=== PATIENT | female | born 1995 | race Caucasian/White ===

== ENCOUNTER 2021-03-28 05:01 | Emergency (ER) | payer MEDICAID, SELFPAY ==
[2021-03-28] VITALS (7 sets, daily range): BP systolic 94–115; BP diastolic 64–89; PULSE 81–108; RESP 11–22; TEMP 37; O2SAT 100
--- NOTE | 2021-03-28 05:42 | ED.ABDPAIN ---
HPI - Abdominal Pain General Chief Complaint: Abdominal Pain Stated Complaint: abd pain Time Seen by Provider: 03/28/21 05:26 History of Present Illness HPI narrative: Cramping RLQ pain for several hours. Associated with nausea. She has had this pain multiple times in the past due to IBS. She is normally on dicyclomine, but she did not take it because she has not eaten and did not want to take it on an empty stomach. No vomiting, diarrhea, fever. Related Data Home Medications Medication Instructions Recorded Confirmed dicyclomine mg 03/28/21 norgestimate-ethinyl estradiol tablet 03/28/21 03/28/21 [Sprintec (28)] Allergies Allergy/AdvReac Type Severity Reaction Status Date / Time No Known Allergies Allergy Unverified 03/28/21 05:16 Review of Systems Review of Systems: All systems reviewed & are unremarkable except as noted in HPI and below Constitutional: Constitutional: Denies chills and Denies fever(s) Cardiovascular: Cardiovascular: Denies chest pain Respiratory: Respiratory: Denies dyspnea Gastrointestinal: Gastrointestinal: Reports abdominal pain, Denies diarrhea, Reports nausea and Denies vomiting Genitourinary: Genitourinary: Denies hematuria and Denies dysuria Neurologic: Reports system reviewed and no additional complaints, except as documented [facility] Past Medical History Medical History (Updated 03/28/21 @ 07:10 by Steven Clinton MD) IBS (irritable bowel syndrome) Social History Social History (Updated 03/28/21 @ 05:54 by Steven Clinton MD) Smoking status: Never smoker Exam Const: General: no acute distress Orientation/consciousness: patient oriented x3 HENMT: Head: normal to inspection Neck: Neck: normal visual inspection and no lymphadenopathy Chest: Chest palpation & inspection: no tenderness Resp: Effort & Inspection: normal respiratory effort Auscultation: clear to auscultation bilaterally, no rales, no rhonchi and no wheezes Cardio: Jugular venous distension: no JVD Rate: regular rate Rhythm: regular rhythm Heart sounds: no murmurs GI: Inspection: non-distended GI Palp: Yes Soft to palpation and No Tenderness to palpation present (GI) Skin: General skin exam: normal color Neuro: General: patient oriented x3 and moves all extremities Speech: normal speech Extrem: General: no edema Psych: Appearance: well kempt Affect: normal affect Course Vital Signs Vital signs: Vital Signs Temperature 37.0 C 03/28/21 05:07 Pulse Rate 84 03/28/21 05:07 Respiratory Rate 21 H 03/28/21 05:07 Blood Pressure 104/70 03/28/21 05:07 Pulse Oximetry 100 03/28/21 05:07 Temperature 37.0 C 03/28/21 05:07 Pulse Rate 90 03/28/21 08:03 Respiratory Rate 12 03/28/21 08:03 Blood Pressure 94/64 L 03/28/21 08:03 Pulse Oximetry 100 03/28/21 08:03 MDM - Abdominal Pain MDM Narrative Medical decision making narrative: Exam benign. Labs reassuring. She reports negative CT for the same symptoms in the past. Differential Diagnosis Differential diagnosis: Likely constipation and other (IBS) Medical Records Attestation: I reviewed the patient's medical records. Lab Data Attestation: I reviewed the patient's lab results. Result diagrams: 03/28/21 05:43 03/28/21 05:43 Labs: Lab Results 03/28/21 03/28/21 03/28/21 Range/Units 05:43 05:43 05:43 WBC 9.9 (4.5-10.0) K/mm3 RBC 4.14 L (4.2-5.4) M/mm3 Hgb 10.6 L (12.0-15.0) g/dL Hct 33.5 L (37.0-47.0) % MCV 80.9 (80-100) fl MCH 25.6 L (26-34) pg MCHC 31.6 L (32-36) g/dl RDW 16.7 H (11.5-14.5) % Plt Count 253 (150-375) k/mm3 MPV 11.6 H (7.4-10.4) fl Immature Gran % (Auto) 0.4 (0-0.5) % Neut % (Auto) 76.8 H (45.5-73.1) % Lymph % (Auto) 15.6 L (18.3-44.2) % [place] % (Auto) 7.0 (2.6-8.5) % Eos % (Auto) 0.1 (0-4.4) % Baso % (Auto) 0.1 L (0.2-1.2) % Lymph # (Auto) 1.55 (0.9-3.2) K/
[2021-03-28 05:50] LABS: Basophils Percent Auto 0.1 % (0.2-1.2); Eosinophils Percent Auto 0.1 % (0-4.4); Hematocrit 33.5 % (37.0-47.0); Hemoglobin 10.6 g/dL (12.0-15.0); Immature Granulocyte Absolute 0.04 K/mm3 (0.00-0.031); Immature Granulocyte Percent A 0.4 % (0-0.5); Lymphocytes Absolute Auto 1.55 K/mm3 (0.9-3.2); Lymphocytes Percent Auto 15.6 % (18.3-44.2); Mean Corpuscular HGB Conc 31.6 g/dl (32-36); Mean Corpuscular Hemoglobin 25.6 pg (26-34); Mean Corpuscular Volume 80.9 fl (80-100); Mean Platelet Volume 11.6 fl (7.4-10.4); Monocytes Absolute Auto 0.7 K/mm3 (0.1-0.6); Neutrophils Absolute Auto 7.6 K/mm3 (1.3-6.7); Neutrophils Percent Auto 76.8 % (45.5-73.1); Platelet Count Result 253 k/mm3 (150-375); Red Blood Count 4.14 M/mm3 (4.2-5.4); Red Cell Distribution Width 16.7 % (11.5-14.5); White Blood Count 9.9 K/mm3 (4.5-10.0)
[2021-03-28 06:00] LABS: Add Urine Microscopic? YES; Alanine Aminotransferase 9 U/L (4-35); Albumin Level 4.8 g/dL (3.5-5.1); Alkaline Phosphatase 42 U/L (38-126); Anion Gap 19 mmol/L (8-16); Appearance Urine Clear (Clear); Aspartate Amino Transferase 22 U/L (14-36); Bacteria Urine Trace /hpf; Bilirubin Urine Negative (Negative); Bilirubin,Total 0.9 mg/dL (0.2-1.3); Blood Urea Nitrogen 10 mg/dL (7-17); Blood Urine 1+ (Negative); Calcium 9.7 mg/dL (8.4-10.2); Carbon Dioxide 15 mmol/L (22-30); Chloride 105 mmol/L (98-107); Color Urine Yellow (Yellow); Estimated CRCL calculation 86 ml/min; Estimated Glomerular Filt Rate > 60; Glucose 84 mg/dL (65-105); Glucose Urine UA Negative (Negative); Ketones Urine 2+ mg/dL (Negative); Leukocyte Esterase Ur Negative LEU/UL (Negative); Lipase 47 U/L (23-300); Mucus Urine Rare /lpf; Nitrate Urine Negative (Negative); Potassium 3.8 mmol/L (3.4-5.0); Protein Urine 1+ mg/dL (Negative); Sodium 139 mmol/L (137-145); Specific Grav Ur 1.017 (1.001-1.035); Squamous Epithelial Cell Urine Occasional /hpf (Few); Urobilinogen Urine Negative mg/dL (<2.0); WBC Urine 0-3 /hpf
[2021-03-28] MEDS: SODIUM CHLORIDE 0.9% IV 1,000 ML 999 ML IV CONT (06:06)
[2021-03-28] MEDS: SIMETHICONE 80 MG TAB.CHEW PO (06:07)
[2021-03-28] MEDS: DICYCLOMINE HCL INJ 20 MG/2 ML VIAL IM (06:08)
[2021-03-28] MEDS: fentaNYL CITRATE INJ (*CRX) 100 MCG/2 ML VIAL 50 MCG IV PUSH (07:16)
== END 2021-03-28 08:07 | disposition home or self-care (01) ==
PROVIDERS: Emergency Provider Emergency Medicine
DX: K58.9 Irritable bowel syndrome, unspecified (principal)
CPT/HCPCS: 36415; 80053; 81001; 81025; 83690; 85025; 96361; 96372; 96374; 99284; A9270; J0500; J3010; J7030

== ENCOUNTER 2022-10-29 12:31 | Emergency (ER) | payer OTHER, MEDICAID, SELFPAY ==
--- NOTE | 2022-10-29 12:33 | ED.DENTAL ---
HPI - Dental/Oral General Chief complaint: Skin/Abscess/Foreign Body Stated complaint: Rt Mouth Pain and Swelling Time Seen by Provider: 10/29/22 12:33 Source: patient Mode of arrival: ambulatory Limitations: no limitations History of Present Illness HPI Narrative: Merlyn is a 27-year-old female patient presenting to the clinic today with complaints of right-sided facial pain and swelling x 2 weeks. She reports that she initially thought this was Gregg that so she popped it on Monday and it has gradually gotten worse. She denies any fever or chills Related Data Home Medications Medication Instructions Recorded Confirmed norgestimate 0.25 mg-ethinyl 1 tablet PO DAILY 03/28/21 10/29/22 estradiol 35 mcg tablet (Sprintec (28)) pantoprazole 40 mg tablet,delayed 40 mg PO DAILY 10/29/22 10/29/22 release Allergies Allergy/AdvReac Type Severity Reaction Status Date / Time No Known Allergies Allergy Verified 10/29/22 12:36 Review of Systems Review of Systems: Pertinent positives per HPI. Patient denies any fever, chills, rash, headache, visual changes, dizziness, cough, runny nose, sore throat, shortness of breath, chest pain, palpitations, nausea, vomiting, diarrhea, constipation, abdominal pain, or any urinary issues. [facility] Past Medical History Medical History IBS (irritable bowel syndrome) Social History Social History Smoking status: Never smoker Comments At the time of my signature, I reviewed and agree with the nursing past medical, surgical, social, and family history. There is no relevant family history pertinent to the patient complaint. Exam Narrative: General: Well-developed, well nourished, in no apparent distress Head: Normocephalic, atraumatic. Cardio: Regular rate and rhythm, s1 and s2 normal, no murmur appreciated. Resp: Clear to auscultation bilaterally, no rhonchi, rales, wheezing or rubs. Integumentary: [place], warm, and dry, intact without lesion, non-fluctuant indurated mildly erythematous and tender area measuring 1.5 x 2 cm to the right cheek. No drainage Course Course Emergency Course: Portions of this record may have been created with voice recognition software. Level of Care: Express Care Visit Vital Signs Vital signs: Vital Signs Temperature 36.3 C L 10/29/22 12:42 Pulse Rate 86 10/29/22 12:42 Respiratory Rate 18 10/29/22 12:42 Blood Pressure 117/79 10/29/22 12:42 Pulse Oximetry 100 10/29/22 12:42 Oxygen Delivery Room Air 10/29/22 12:42 Temperature 36.3 C L 10/29/22 12:42 Pulse Rate 86 10/29/22 12:42 Respiratory Rate 18 10/29/22 12:42 Blood Pressure 117/79 10/29/22 12:42 Pulse Oximetry 100 10/29/22 12:42 Oxygen Delivery Room Air 10/29/22 12:42 Vital signs reviewed MDM - Dental/Oral MDM Narrative Medical decision making narrative: At the time of visit patient is resting comfortably in the exam table. I suspect patient has a developing abscess. I will send in prescription for doxycycline to take twice daily times 10 days. Area is nonfluctuant, induratied, warm,and very tender to palpation today. No drainage seen. Supportive measures were discussed with the patient she voiced understanding discharge instructions agrees to treatment plan. Differential Diagnosis Differential diagnosis: Likely other (Skin/facial abscess, insect bite, cellulitis) Discharge Plan Discharge Clinical Impression: Abscess of face Patient Disposition: Home, Self-Care Condition: Stable Instructions: Antibiotic Form, Abscess (ED) Additional Instructions: Take doxycycline as prescribed Wash area daily with soap and water May apply warm moist heat to the affected area to see if this will come to a head-if this becomes more fluctuant you may come back in and have it drained if needed Increase fluids and stay well
[2022-10-29 12:42] VITALS: BP 117/79; PULSE 86; RESP 18; TEMP 36.3; O2SAT 100
== END 2022-10-29 12:53 | disposition home or self-care (01) ==
LOC: EXPTROY 12:37
PROVIDERS: Emergency Provider Nurse Practitioner Family; PCP Family Medicine
DX: L02.01 Cutaneous abscess of face (principal); K21.9 Gastro-esophageal reflux disease without esophagitis
CPT/HCPCS: 99213; G0463

== ENCOUNTER → 2023-03-31 16:23 | Outpatient (CLI) | payer OTHER, MEDICAID, SELFPAY ==
--- NOTE | ~2023-03-31 | XR_ITS ---
EXAM: XR hip LT min 2V DATE: 03/31/2023 16:38 HISTORY: M25.552Pain in left hip X's 1 month/no trauma . COMPARISON: None available. FINDINGS: Normal mineralization. No fracture or dislocation. No lytic or blastic lesion. Joint space s are maintained. No erosion or periosteal change. Soft tissues within normal limits. Unfused posteri or S1 arch. IMPRESSION: Unremarkable left hip radiograph findings. Reviewed, dictated and finalized at location K.
== END ==
PROVIDERS: PCP Nurse Practitioner Family; Visit Provider Nurse Practitioner Family
DX: M25.552 Pain in left hip (principal)
CPT/HCPCS: 73502

== ENCOUNTER 2024-08-02 09:43 | Emergency (ER) | payer BC, SELFPAY ==
--- NOTE | 2024-08-02 09:47 | ED.URI ---
HPI - URI/Sore Throat General Chief Complaint: Upper Respiratory Infection Stated Complaint: sore throat , runny nose , cough Time Seen by Provider: 08/02/24 09:53 Source: patient, RN notes reviewed and old records reviewed Mode of arrival: ambulatory Limitations: no limitations History of Present Illness HPI Narrative: 28-year-old female presents to the [facility] with complaints of sore throat nose and a cough that started 3 weeks ago. Patient also reports sinus congestion, pressure. Reports intermittent cough. Has taken ibuprofen. Took 2 doses of Sudafed last week. No other treatment prior to arrival. Denies fevers. Onset (ago): week(s) (3) Related Data Home Medications Medication Instructions Recorded Confirmed ferrous fumarate 63 mg (20 mg 63 mg PO PRN PRN anemia 08/02/24 08/02/24 iron) tablet pantoprazole 40 mg tablet,delayed 40 mg PO QAM 08/02/24 08/02/24 release Allergies Allergy/AdvReac Type Severity Reaction Status Date / Time No Known Allergies Allergy Verified 08/02/24 09:47 Review of Systems Review of Systems: All systems reviewed & are unremarkable except as noted in HPI and below Constitutional: Constitutional: Reports no additional constitutional complaints ENT: Reports as per HPI, Reports nasal congestion, Reports nasal discharge and Reports sore throat Cardiovascular: Cardiovascular: Reports no additional cardiovascular complaints, Denies chest pain and Denies dyspnea Respiratory: Respiratory: Reports as per HPI, Denies chest congestion, Reports cough and Denies dyspnea Gastrointestinal: Gastrointestinal: Reports no additional gastrointestinal complaints, Denies abdominal pain, Denies nausea and Denies vomiting Musculoskeletal: Musculoskeletal: Reports no additional musculoskeletal complaints Integumentary/Breasts: Skin/Breast: Reports system reviewed and no additional complaints, except as docu PMFSH Past Medical History Medical History Anemia Encounter to establish care Gastritis GERD (gastroesophageal reflux disease) IBS (irritable bowel syndrome) Iron deficiency anemia Left hip pain Family History Family History Other Alcohol abuse Mother Cancer Grandparent Depression Social History Social History Smoking status: Never smoker Alcohol intake: current Alcohol use details: Rarely maybe one time a year Substance use: never Substance use type: does not use Do You Feel Safe in your Home?: Yes Lack of Transportation: No Lack of Food: Never True Current Housing: I Have Housing Concerned About Future Housing: No Difficulty Paying Gas/Electric Bills: No Difficulty Paying for Meds: No Currently Unemployed: No Education: Master's Degree or Higher Difficulty w/ Childcare or Family Care: No Living arrangements: with family Occupation/Education: occupation Gender identity (if verbalized by the patient): Female Sexual Orientation (if Verbalized by the Patient): Straight or Heterosexual Spiritual care concerns: No Agree to blood products: Yes Comments At the time of my signature, I reviewed and agree with the nursing past medical, surgical, social, and family history. There is no relevant family history pertinent to the patient complaint. Exam Const: General: cooperative, healthy appearing, comfortable, no acute distress, well developed, alert and well nourished Nutritional Appearance: well nourished Orientation/consciousness: patient oriented x3 Limitations: no limitations HENMT: Head: normal to inspection Ears: hearing grossly normal bilaterally, external ears normal, EAC's normal, mastoids normal and no periauricular adenopathy Face/Nose/Sinus: Normal external nose present, No nasal discharge present, normal facial exam and face symmetric Face and sinus: normal facial exam, sinuses nontender and face symmetric Mouth: Yes Normal oral and palatal mucosa present, Yes lip normal and Yes tongue normal Throat: posterior oropharynx normal, tonsils normal, uvula midline, postnasal drainage and no uvular edema Eyes: General: appearance normal, both eyes and all related structures Alignment and Position: alignment normal Periorbital: periorbital findings normal Neck: Neck: normal visual inspection, full ROM, no lymphadenopathy and no meningeal signs Chest: Chest palpation & inspection: normal inspection of the chest Resp: Effort & Inspection: normal respiratory effort and able to speak in complete sentences Auscultation: clear to auscultation bilaterally, no crackles, no rales, no rhonchi and no wheezes Cardio: Rate: regular rate Skin: General skin exam: normal color and no rashes or lesions noted Lesions: no lesions Rashes: no rashes Wounds: no wounds Neuro: General: patient oriented x3, gait normal, tone normal, moves all extremities and no meningeal signs Cognition (Neuro): normal cognition Speech: normal speech Gait exam (Neuro): Normal gait present Extrem: General: normal to inspection, full ROM, capillary refill normal and normal gait Psych: Appearance: grossly normal and well kempt Mental Status: mental status grossly normal Speech and movement: Normal speech and movement present and Clear speech present Affect: normal affect Attitude: cooperative Course Course Level of Care: Express Care Visit Vital Signs Vital signs: Vital Signs Temperature 97.4 F L 08/02/24 09:53 Pulse Rate 80 08/02/24 09:53 Respiratory Rate 16 08/02/24 09:53 Blood Pressure 104/66 08/02/24 09:53 Pulse Oximetry 99 08/02/24 09:53 Oxygen Delivery Room Air 08/02/24 09:53 Temperature 97.4 F L 08/02/24 09:53 Pulse Rate 80 08/02/24 09:53 Respiratory Rate 16 08/02/24 09:53 Blood Pressure 104/66 08/02/24 09:53 Pulse Oximetry 99 08/02/24 09:53 Oxygen Delivery Room Air 08/02/24 09:53 Reviewed MDM - URI/Sore Throat MDM Narrative Medical decision making narrative: Patient sitting comfortably in exam room. Nontoxic, vitals stable. Patient in no acute distress Patient presents with 3 week history of URI, sinus symptoms. Minimal treatment No acute findings other than postnasal drainage noted on exam Due to 3 week history will attempt antibiotic and encourage patient to use [id number] products Patient appropriate for outpatient treatment and follow-up Discharge instructions reviewed with patient, as well as provided in writing per nursing staff. The instructions also include specific and strict return/GO TO THE ER as well as f/u information. All questions have been answered, and the patient deny any further questions with discharge and discharge plan. Some parts of this dictation were generated by voice recognition software and may contain typographical and/or grammatical inaccuracies. Differential Diagnosis Differential diagnosis: Likely upper respiratory infection, otitis media, sinusitis, viral infection, bronchitis and pharyngitis Critical Care Time Critical Care Time Critical Care Time: No Discharge Plan Discharge Clinical Impression: Sinusitis, PND (post-nasal drip) Patient Disposition: Home, Self-Care Condition: Stable Instructions: Antibiotic Form, Rhinosinusitis (ED) Additional Instructions: -Alternate Tylenol and Motrin per package directions for fever or pain. -Antihistamine medication such as Benadryl at night and Zyrtec/Claritin/Tammi during the day can help improve symptoms. -doing daily nasal irrigations can help relieve pressure your sinuses. Things like a Neti pot -Use Flonase twice a day for 5 days then daily to help reduce the inflammation and dry up your sinuses. -You can also use Sudafed or Mucinex. Be sure to drink plenty of water with these medications at least 8 ounces with every dose and it is important to drink 8 to 10 glasses of water per day. Water is a natural decongestant -Eat and drink things that are easy to swallow, like tea or soup, or popsicles. -Oral rinses such as: Salt water gargles and/or may use topical anesthetic (eg. Chloraseptic spray) or lozenges to relieve dryness or throat pain). -Frequent hand washing or hand brand engineer is one of the best ways to prevent spread of infection. -Using a vaporizer or humidifier at night will also help thin secretions and help with coughing up phlegm. -Follow up with primary care provider in 7-10 days if condition is not improving - For new or worsening symptoms go directly to the nearest ER Patient Language: Bengali Prescriptions: New amoxicillin-pot clavulanate 875-125 mg tablet 1 tablet PO Q12H Qty: 14 0RF No Action ferrous fumarate 63 mg (20 mg iron) Tablet 63 mg PO PRN PRN (Reason: anemia) pantoprazole 40 mg Tablet,Delayed Release (Dr/Ec) 40 mg PO QAM Follow-up/Referrals: Cristina Mcneil NP [Primary Care Provider] - Stand Alone Forms: Work/School Release IP Time of Disposition: 10:02
[2024-08-02 09:53] VITALS: BP 104/66; PULSE 80; RESP 16; TEMP 36.3; O2SAT 99
== END 2024-08-02 10:03 | disposition home or self-care (01) ==
PROVIDERS: Emergency Provider Nurse Practitioner; PCP Nurse Practitioner Family
DX: J32.9 Chronic sinusitis, unspecified (principal); R09.82 Postnasal drip; K21.9 Gastro-esophageal reflux disease without esophagitis; D50.9 Iron deficiency anemia, unspecified
CPT/HCPCS: 99213; G0463

== ENCOUNTER 2025-01-22 08:03 | Emergency (ER) | payer BC, SELFPAY ==
[2025-01-22 08:12] VITALS: BP 96/65; PULSE 91; RESP 18; TEMP 36.3; O2SAT 100
--- NOTE | 2025-01-22 08:12 | ED_ITS ---
HPI - General Adult General Chief complaint: Skin/Abscess/Foreign Body Stated complaint: hemmorhoids Time Seen by Provider: 01/22/25 08:21 Source: patient Mode of arrival: ambulatory Limitations: no limitations History of Present Illness HPI narrative: Here With concern for anal itching. She reports a 4 day history of anal itching. she denies constipation, reports last BM was 2 days ago. She reports a history of IBS mixed type with constipation and diarrhea. she reports using MiraLax at times for constipation. She reports history of anemia and being on iron, and is familiar with taking medications for constipation. She denies any blood in stool or bleeding from the rectum. Denies any nausea or vomiting. She reports googling her symptoms online and being concerned for pinworms. She reports drinking clean water. She denies any recent travel, and denies any recent international travel. She reports no restrictions on her diet. She reports eating plenty of fresh fruits, vegetables, and fiber. She reports being 19 and half weeks . Her last menstrual was 09/12/2024. Due date 06/14. She is with her first child, a boy. She reports she is otherwise in her usual state of health. She reports having an OBGYN appointment scheduled for Monday. Related Data Home Medications ?Medication ?Instructions ?Recorded ?Confirmed ?Last Taken ?Type pantoprazole 40 mg tablet,delayed 40 mg PO QAM 08/02/24 01/22/25 Unknown History release docosahexaenoic acid 200 mg mg PO 10/11/24 10/11/24 Unknown History capsule ( DHA) ferrous sulfate 325 mg (65 mg 325 mg PO DAILY 10/11/24 01/22/25 Unknown History iron) tablet Allergies Allergy/AdvReac Type Severity Reaction Status Date / Time No Known Allergies Allergy Verified 01/22/25 08:05 Review of Systems Review of Systems: CONSTITUTIONAL: Denies fever, chills, or sweats. EYES: Denies visual changes, redness, or discharge. ENT: Denies rhinorrhea, congestion, sore throat, or otalgia. CARDIOVASCULAR: Denies chest pain, palpitations, or edema. RESPIRATORY: Denies cough or dyspnea. GASTROINTESTINAL: Denies abdominal pain, nausea, vomiting, or diarrhea. GENITOURINARY: Denies dysuria or hematuria. : . SKIN: Denies rash. +anal itching MUSCULOSKELETAL: Denies back pain, joint pain, or myalgia. NEUROLOGIC: Denies headache, numbness, or weakness. PSYCHIATRIC: Denies anxiety or depression. All other systems reviewed are negative, except as documented in HPI. [facility] Past Medical History Medical History (Updated 01/22/25 @ 08:35 by Faith Mata APRN) Insomnia Positive home test BMI < 18.5 Iron deficiency anemia Gastritis Encounter to establish care Left hip pain Anemia GERD (gastroesophageal reflux disease) IBS (irritable bowel syndrome) Family History Family History Other Alcohol abuse Mother Cancer Grandparent Depression Social History Social History Smoking status: Never smoker Alcohol intake: current Alcohol use details: Rarely maybe one time a year Substance use: never Substance use type: does not use Do You Feel Safe in your Home?: Yes Lack of Transportation: No Lack of Food: Never True Current Housing: I Have Housing Concerned About Future Housing: No Difficulty Paying Gas/Electric Bills: No Difficulty Paying for Meds: No Currently Unemployed: No Education: Master's Degree or Higher Difficulty w/ Childcare or Family Care: No Living arrangements: with family Occupation/Education: occupation Gender identity (if verbalized by the patient): Female Sexual Orientation (if Verbalized by the Patient): Straight or Heterosexual Spiritual care concerns: No Agree to blood products: Yes Comments At time of signature, I have reviewed and agree with nursing past medical, surgical, social and family history unless otherwise noted. Please see nursing chart for further information. There is no relevant family history pertinent to the presenting complaint. Exam Narrative: GENERAL: This is a well-nourished, well-developed patient, in no apparent distress. HEAD: normocephalic, atraumatic. EYES: Sclera clear/white. EARS: External ears normal. Hearing grossly intact. NOSE: External nose normal with no obvious nasal discharge. THROAT: Trachea midline. CARDIOVASCULAR: Regular rate and rhythm without murmurs, gallops, or rubs. RESPIRATORY: Clear to auscultation. Breath sounds equal bilaterally. No wheezes, rales, or rhonchi. SKIN: warm, Dry, intact with no suspicious lesions or rash, good texture and turgor. Anus inspected with RN at bedside. No hemorrhoids. No redness. NEURO: awake, alert, and oriented to person, place and time. There were no obvious focal neurologic abnormalities. EXTREMITIES: No joint tenderness, effusion, or edema noted. Course Course Level of Care: Express Care Visit Vital Signs Vital signs: reviewed Medical Decision Making MDM Narrative Medical decision making narrative: Patient is aware of diagnosis, understands and agrees to treatment plan. Anticipatory guidance was given. We reviewed ensuring patient diet consists of plenty of fiber. We reviewed to avoid topical creams applied to anus unless they are approved by substitute bus driver. There are many [id number] medications available for anal itching, however the evidence conflicts on the efficacy, and Benefit versus risk in . She will contact Ob/ fermenter champagne office for approved medications or topical creams she can use on the anus. We also discussed testing options if she continues to be concerned for possible worms, Such as a stool O& with PCP. She will discuss this further at her substitute bus driver appointment on Monday. Discussed physical exam findings with patient and reviewed prescriptions. Patient agrees to follow-up as directed and is aware of reasons to seek care at the emergency department. Discharge instructions were reviewed with the patient, as well as provided in writing per nursing staff. All questions have been answered, and the patient denies any further questions related to discharge or discharge plan. Discharge Plan Discharge Clinical Impression: Anal pruritus Patient Disposition: Home Condition: Stable Instructions: Constipation (ED), Anal Itching (ED), High Fiber Diet (ED) Additional Instructions: Continue medications as prescribed and follow printed instructions. Increase fiber intake. Drink plenty of water. Nutrition is important - eat small frequent meals. Talk to CERTIFIED MASTER SAFE TECHNICIAN at your appointment on Monday about possible topical treatment options such as creams. Keep CERTIFIED MASTER SAFE TECHNICIAN appointment as scheduled on Monday. Patient Language: Irish Prescriptions: No Action pantoprazole 40 mg Tablet,Delayed Release (Dr/Ec) 40 mg PO QAM ferrous sulfate 325 mg (65 mg iron) tablet 325 mg PO DAILY DHA 200 mg capsule PO Follow-up/Referrals: Cristina Mcneil NP [Primary Care Provider] - Time of Disposition: 08:35
--- OUTSIDE RECORDS SUMMARY | 2025-01-22 08:14 | XMS_ITS | Clinical Summary ---
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 0 9 Active ondansetron (ZOFRAN-ODT) 4 MG disintegrating tablet Take 1 tablet (4 mg total) by mouth every 8 (eight) hours as needed for Nausea. 10 tablet 2 Active Active Problems Problem Noted Date Diagnosed Date Abdominal pain 05/07/2022 IBS (irritable bowel syndrome) Overview (05/07/2022): possible Hypokalemia Microcytic anemia Acute cystitis Social History Tobacco Use Types Packs/Day Years Used Date Smoking Tobacco: Never Smokeless Tobacco: Never Alcohol Use Standard Drinks/Week Comments Never 0 (1 standard drink = 0.6 oz pur e alcohol) AUDIT-C Answer Date Recorded Frequency of Alcohol Consumption Never 11/18/2019 Average Number of Drinks Not on file 020 Frequency of Binge Drinking Not on file 11/02 Comments Unknown Sex and Gender Information Value Date Recorded Sex Assigned at Female 11/18/2019 5:41 AM VOICE STUDIES DIRECTOR Legal Sex Female 10:23 AM CDT Gender Identity Female 11/18/2019 5:41 AM VOICE STUDIES DIRECTOR Sexual Orientation Straight 11/18/2019 5: 41 AM VOICE STUDIES DIRECTOR Last Filed Vital Signs Vital Sign Reading Time Taken Comments Blood Pressure 96/57 08/12/2022 8:43 AM VOICE STUDIES DIRECTOR Pulse 85 08/12/2022 8:43 AM VOICE STUDIES DIRECTOR Temperature 36 C (96.8 F) 08/12/2022 8:43 AM VOICE STUDIES DIRECTOR Respiratory Rate 18 08/12/2022 8:43 AM VOICE STUDIES DIRECTOR Oxygen Saturation 100% 08/12/2022 8:43 AM VOICE STUDIES DIRECTOR Inhaled Oxygen Concentration - - Weight 54.4 kg (120 lb) 08/04/2022 3:00 PM CDT Height 170.2 cm (5' 7 ) 08/04/2022 3:00 PM CDT Body Mass Index 18.79 08/04/2022 3:00 PM CDT Plan of Treatment Health Maintenance Due Date Last Done Comments Annual Physical 1996 Hepatitis C 2011 DTaP, Tdap and Td Vaccines ( 1 - Tdap) 2012 Hepatitis B Vaccines (1 of 3 - 19+ 3-dose series) 2012 Cervical Cancer Screening Pa p with HPV Testing (Age 30 to 64) Every 5 Years 2023 COVID-19 Vaccine ( - 2023-2 5 season) 2024 01/08/2021, 12/09/2020 Cervical Cancer Screening Pa p Smear (Age 30 to 64) Every 3 Years 04/27/2025 04/27/2022 Cervical Cancer Screening wi HPV 04/27/2025 HPV Vaccines Aged Out No longer eligi ble based on patient's age to complete this topic Meningococcal B Vaccine Aged Out No l onger eligible based on patient's age to complete this topic Meningococcal Vaccine Aged Out No radha clem eligible based on patient's age to complete this topic Pneumococcal Vaccine: Pediatrics (0 to 5 Years) and At-Risk Patients (6 to 49 Years) Aged Out No longer eligible b ased on patient's age to complete this topic RSV Immunizations Under 20 Months Aged Out No longer eligible b ased on patient's age to complete this topic Insurance [employer] Advance Directives * Full Code (Latest Code Status on File) Date Activated Date Inactivated Comments 05/07/2022 2:37 AM 05/07/2022 8:40 PM Care Teams Tannery Worker Relationship Specialty Start Date End Date Petrona Wets FNP [address] [place] [id number] PCP - General NURSE PRACTITIONER 05/15/19
--- OUTSIDE RECORDS SUMMARY | 2025-01-22 08:16 | XMS_ITS | Data Portability ---
Author Organization [facility] [place] Address [address] [place] [address] [address] Care Team Providers Care Furnace Combustion Analyst Name Role Phone JYOTI MCKINNON Primary Care Provider Assessment Encounter Date Assessment Date Assessment LastModified by Organization Details LastModified Time 12/24/2024 12/24/2024 Patient is ___weeks . Discussed plan. [email or web address] Not available 12/24/2024 10:08:02 Plan of Treatment Reminders Order Date Submit Date Provider Last Modified By Organization Details Last Modified Time Details Appointments U/S OB BASELIN E 2024 09:00A M ULTRASOUND Not available Not available Not available OB ROUTINE 2024 10:00A M Kalia PICHARDO MD Not available Not available Not available Lab drug screen, urine 2024 025 [email or web address] [address], [address], [place], [address], 12/13/2024 11:01:17 Referral None recorde d. Procedures None recorde d. Surgeries None recorde d. Imaging US, obstetr ic, limited 2024 025 [email or web address] [place], [address], [place], [address], 12/25/2024 19:02:19 US, obstetr ic, nuchal translu cency 2024 025 [email or web address] [place], [address], [place], [address], 12/06/2024 16:12:42 Medication Orders None recorde d. Patient TargetsNo targets recorded. Patient InstructionsNo instructions recorded. Reason for Referral None Reported. Results Created Date Observation Date Name Description Value Unit Range Abnormal Flag Note LastModifiedBy Organization Detail LastModifiedTime 12/03/19 25 12/02/2024 [UNIT Y] ANEUP LOIDY NIPT fraction 9.3% normal Not Available [facility] [address] [facility], [place], [address], 12/02/2024 18:12:34 12/03/19 25 12/02/2024 [UNIT Y] ANEUP LOIDY NIPT 22Q11.2 microdeletio n LOW RISK <1 in 10,000 normal Not Available [facility] [address] [place], [address], 12/02/2024 18:12:34 12/03/19 25 12/02/2024 [UNIT Y] ANEUP LOIDY NIPT sex chromosome aneuploidy NOT DETECT ED normal Not Available [facility] [address] [place], [address], 12/02/2024 18:12:34 12/03/19 25 12/02/2024 [UNIT Y] ANEUP LOIDY NIPT monosomy X LOW RISK <1 in 10,000 normal Not Available [facility] [address] [place], [address], 12/02/2024 18:12:34 12/03/19 25 12/02/2024 [UNIT Y] ANEUP LOIDY NIPT trisomy 13 LOW RISK <1 in 10,000 normal Not Available [facility] [address] [place], [address], 12/02/2024 18:12:34 12/03/19 25 12/02/2024 [UNIT Y] ANEUP LOIDY NIPT trisomy 18 LOW RISK <1 in 10,000 normal Not Available [facility] [address] [place], [address], 12/02/2024 18:12:34 12/03/19 25 12/02/2024 [UNIT Y] ANEUP LOIDY NIPT trisomy 21 LOW RISK <1 in 10,000 normal Not Available [facility] [address] [facility], [place], [address], 12/02/2024 18:12:34 12/03/19 25 12/02/2024 [UNIT Y] ANEUP LOIDY NIPT sex MALE normal Not Available [facility] [address] [facility], [place], [address], 12/02/2024 18:12:34 12/03/19 25 12/02/2024 [UNIT Y] ANEUP LOIDY NIPT gestation SINGLE TON normal Not Available [facility] [address] [facility], [place], [address], 12/02/2024 18:12:34 12/03/19 25 12/02/2024 [UNIT Y] ANEUP LOIDY NIPT for detailed report, see pdf See PDF normal Not Available [facility] [address] [facility], [place], [address], 12/02/2024 18:12:34 12/05/19 25 12/04/2024 [UNIT Y] MICHELLE GEETA DE LA TORRE N sickle cell disease/beta -thalassemia /hemoglobino pathies carrier screen NEGATI VE normal Not Available [facility] [address] [facility], [place], [address], 12/04/2024 20:55:56 12/05/19 25 12/04/2024 [UNIT Y] MICHELLE ER SCREE N alpha-thalas semia carrier screen NEGATI VE normal Not Available [facility] [address] [facility], [place], [address], 12/04/2024 20:55:56 12/05/19 25 12/04/2024 [UNIT Y] MICHELLE GEETA SCREE N cystic fibrosis carrier screen NEGATI VE normal Not Available [facility] [address] [facility], [place], [address], 12/04/2024 20:55:56 12/05/19 25 12/04/2024 [UNIT Y] MICHELLE DE LA TORRE Orlin spinal muscular atrophy carrier screen NEGATI VE 2 SMN1 copies , SNP not presen t normal Not Available [facility] [address], [place], [address], 12/04/2024 20:55:56 12/05/19 25 12/04/2024 [UNIT Y] MICHELLE DE LA TORRE Orlin for detailed report, see pdf See PDF normal Not Available [facility] [address], [place], [address], 12/04/2024 20:55:56 10/09/19 25 10/09/2024 BHCG, QUANT ITATI VE B-HCG 425.0 mIU/m L This assay was perfo rmed using [employer] ratio n reage nts and test kits. Value s obtai costa with other assay metho ds or kits canno t be used inter puga eably . Refer ence Range s: Non-p regna nt, preme nopau elfego women : 0.0-5 .3 mIU/m L Postm enopa usal women : 0.0-7 .0 mIU/m L Delisa l Pregn ugo: Gesta pollo l Age bHCG Conc. - mIU/m L 3 Weeks 5.8 - 71.7 4 Weeks 9.5 - 750 5 Weeks 217-7 138 6 Weeks 158 - 31,79 5 7 Weeks 3,697 - 162,5 63 8 Weeks 32,06 5 - 149,5 71 9 Weeks 63,80 3 - 151,4 10 10 Weeks 46,50 9 - 186,9 77 12 Weeks 27,83 2 - 210,6 12 14 Weeks 13,95 0 - 62,53 0 15 Weeks 12,03 9 - 70,97 1 16 Weeks 9,040 - 56,45 1 17 Weeks 8,175 - 55,86 8 18 Weeks 8,099 - 58,17 6 Not Available [facility] (Lab) [address], [place], [address], 10/10/2024 09:24:10 10/14/19 25 10/14/2024 BHCG, QUANT ITATI VE B-HCG 3477.0 mIU/m L This assay was perfo rmed using [employer] ratio n reage nts and test kits. Value s obtai costa with other assay metho ds or kits canno t be used inter puga eably . Refer ence Range s: Non-p regna nt, preme nopau elfego women : 0.0-5 .3 mIU/m L Postm enopa usal women : 0.0-7 .0 mIU/m L Delisa l Pregn ugo: Gesta pollo l Age bHCG Conc. - mIU/m L 3 Weeks 5.8 - 71.7 4 Weeks 9.5 - 750 5 Weeks 217-7 138 6 Weeks 158 - 31,79 5 7 Weeks 3,697 - 162,5 63 8 Weeks 32,06 5 - 149,5 71 9 Weeks 63,80 3 - 151,4 10 10 Weeks 46,50 9 - 186,9 77 12 Weeks 27,83 2 - 210,6 12 14 Weeks 13,95 0 - 62,53 0 15 Weeks 12,03 9 - 70,97 1 16 Weeks 9,040 - 56,45 1 17 Weeks 8,175 - 55,86 8 18 Weeks 8,099 - 58,17 6 Not Available [facility] (Lab) [address], [place], [address], 10/15/2024 05:05:54 11/08/19 25 11/08/2024 IMAGE GUIDE D PAP AND HPV REGAR DLESS image guided Pap, HPV regardless of Pap result SEE RESULT S BELOW CASE REPOR T: Cytol ogy Gynec ologi matt Repor t Case: [id number] Autho ericka g Provi bala: Jerry Pichardo MD Colle cted: 11/08 1539 Order ing Locat ion: [place] Patho logy Recei lorenzo: 11/11 1141 First Scree n: Carmelina r, [place] , [place] Rescr een: Federico en, Carolina ndra Speci men: Scree sadaf Pap - Image d, Cervi x STATE MENT OF ADEQU ACY: Satis facto ry for evalu ation Trans forma tion zone compo nent absen t. The absen ce of an endoc ervic al compo nent was confi rmed by an addit ional christofer brooks. ----- ----- ----- ----- ----- ----- ----- ----- ----- ----- ----- ----- ----- ----- ----- ----- ----- ---- FINAL DIAGN OSIS: Negat jose for Intra epith glenn pan or Ivelisse durham ([facility]) . Elect cesar abarca by Carolina Caballero en on 2024 at 1549 DYNAMITER ----- ----- ----- ----- ----- ----- ----- ----- ----- ----- ----- ----- ----- ----- ----- ----- ----- ---- HPV RESUL TS: HPV mRNA E6/E7 : No HPV mRNA Detec vlad NOTE: This high risk HPV mRNA assay detec ts fourt een high- risk HPV types (16, 18, 31, 33, 35, 39, 45, 51, 52, 56, 58, 59, 66, 68) witho ut diffe renti ation . COMME NT: This speci men was revie wed by a Cytot echno logis t and/o r Patho logis t (as indic ated in this repor t) after evalu ation using the Thinp rep Imagi ng Syste m. CLINI MATT INFOR MATIO N: Menst rual Statu s: LMP (if appli cable ): Clini matt Histo ry/Pr eviou s Pap: Type of Neopl darryl (if appli cable ): Signi nayeli t Clini matt Findi ngs: Other Histo ry: Hormo frank (if appli cable ): PAP EDUCA POLLO L NOTE: The Pap Test is a scree sadaf test with an inher ent false negat jose rate. Liqui d-bas ed sampl ing may decre ase, but will not elimi radha, false negat jose resul ts. A negat jose resul t does not precl ude the prese nce and/o r devel opmen t of disea se, since the prese nce of abnor mal cells in the sampl e depen ds on the locat ion of the lesio n and sampl ing techn ique. Stephanie nued regul ar scree sadaf is the best metho d of cance r preve ntion . If repor vlad cytol ogic findi ng do not corre late with physi matt and/o r histo rical findi ngs, furth er inves tigat ion is recom mariano d, as clini sydea duran nted. Not Available [facility] (Lab) [address], [place], [address], 11/13/2024 16:54:42 11/08/19 25 11/08/2024 TRICH OMONA S VAGIN TEETEE (RRNA ) trichomonas vaginalis ribosomal RNA (rrna) Negati ve negati ve Not Available [facility] (Lab) [address] [place], [address], 11/13/2024 16:54:43 11/08/19 25 11/08/2024 CT/GC (SANAM) , THINP REP VIAL chlamydia trachomatis, PCR Negati ve negati ve Not Available [facility] (Lab) [address] [place], [address], 11/13/2024 16:54:44 11/08/19 25 11/08/2024 CT/GC (SANAM) , THINP REP VIAL neisseria gonorrhoeae, PCR Negati ve negati ve Not Available [facility] (Lab) [address] [place], [address], 11/13/2024 16:54:44 11/18/19 25 11/18/2024 CBC W/DIF F WBC 6.4 10'3/ uL 3.5-10 .5 Not Available [facility] (Lab) [address], [place], [address], 11/19/2024 14:13:24 11/18/19 25 11/18/2024 CBC W/DIF F RBC 3.95 10'6/ uL (based on docume nted legal sex) 3.80-5 .20 Not Available [facility] (Lab) [address], [place], [address], 11/19/2024 14:13:24 11/18/19 25 11/18/2024 CBC W/DIF F HGB 11.5 g/dL (based on docume nted legal sex) 11.6-1 5.4 low Not Available [facility] (Lab) [address], [place], [address], 11/19/2024 14:13:24 11/18/19 25 11/18/2024 CBC W/DIF F HCT 35.0 % (based on docume nted legal sex) 34.0-4 5.0 Not Available [facility] (Lab) [address], [place], [address], 11/19/2024 14:13:24 11/18/19 25 11/18/2024 CBC W/DIF F MCV 88.6 fL 80.0-9 9.0 Not Available [facility] (Lab) [address], [place], [address], 11/19/2024 14:13:24 11/18/19 25 11/18/2024 CBC W/DIF F MCH 29.1 pg 27.0-3 4.0 Not Available [facility] (Lab) [address], [place], [address], 11/19/2024 14:13:24 11/18/19 25 11/18/2024 CBC W/DIF F MCHC 32.9 g/dL 32.0-3 5.5 Not Available [facility] (Lab) [address], [place], [address], 11/19/2024 14:13:24 11/18/19 25 11/18/2024 CBC W/DIF F RDW 13.2 % 11.0-1 5.0 Not Available [facility] (Lab) [address], [place], [address], 11/19/2024 14:13:24 11/18/19 25 11/18/2024 CBC W/DIF F plt 204 10'3/ uL 150-40 0 Not Available [facility] (Lab) [address], [place], [address], 11/19/2024 14:13:24 11/18/19 25 11/18/2024 CBC W/DIF F MPV 12.4 fL 8.8-12 .1 high Not Available [facility] (Lab) [address], [place], [address], 11/19/2024 14:13:24 11/18/19 25 11/18/2024 CBC W/DIF F neutrophils 70.3 % 34.0-7 3.0 Not Available [facility] (Lab) [address], [place], [address], 11/19/2024 14:13:24 11/18/19 25 11/18/2024 CBC W/DIF F lymphocytes 23.3 % 15.0-5 0.0 Not Available [facility] (Lab) [address], [place], [address], 11/19/2024 14:13:24 11/18/19 25 11/18/2024 CBC W/DIF F monocytes 4.4 % 1.0-15 .0 Not Available [facility] (Lab) [address], [place], [address], 11/19/2024 14:13:24 11/18/19 25 11/18/2024 CBC W/DIF F eosinophils 1.4 % 0.0-8. 0 Not Available [facility] (Lab) [address], [place], [address], 11/19/2024 14:13:24 11/18/19 25 11/18/2024 CBC W/DIF F basophils 0.3 % 0.0-2. 0 Not Available [facility] (Lab) [address], [place], [address], 11/19/2024 14:13:24 11/18/19 25 11/18/2024 CBC W/DIF F immature granulocytes 0.3 % no define d refere nce range Immat ure Granu locyt es (IG) repre sents autom ated enume ratio n of Metam yeloc ytes, Myelo cytes and Promy elocy los when IG is < 5%. Blast s are not inclu ded in IG and repor vlad separ ately if prese nt. Not Available [facility] (Lab) [address], [place], [address], 11/19/2024 14:13:24 11/18/19 25 11/18/2024 CBC W/DIF F absolute neutrophils 4.5 10'3/ uL 1.5-8. 0 Not Available [facility] (Lab) [address], [place], [address], 11/19/2024 14:13:24 11/18/19 25 11/18/2024 CBC W/DIF F absolute lymphocytes 1.5 10'3/ uL 1.0-4. 0 Not Available [facility] (Lab) [address], [place], [address], 11/19/2024 14:13:24 11/18/19 25 11/18/2024 CBC W/DIF F absolute monocytes 0.3 10'3/ uL 0.2-1. 0 Not Available [facility] (Lab) [address], [place], [address], 11/19/2024 14:13:24 11/18/19 25 11/18/2024 CBC W/DIF F absolute eosinophils 0.1 10'3/ uL 0.0-0. 6 Not Available [facility] (Lab) [address], [place], [address], 11/19/2024 14:13:24 11/18/19 25 11/18/2024 CBC W/DIF F absolute basophils 0.0 10'3/ uL 0.0-0. 3 Not Available [facility] (Lab) [address], [place], [address], 11/19/2024 14:13:24 11/18/19 25 11/18/2024 CBC W/DIF F absolute immature granulocytes 0.0 10'3/ uL 0.00-0 .10 Refer ence range s for nonbi nary/ inter sex or unspe cifie d gende r patie nts have not been estab lishe d. Pleas e refer to the [facility] for range s estab lishe d for cisge nder patie nts and evalu ate in the clini matt maritza xt of the indiv idual patie nt: https :[email or web address] thakur book. nm.or g/gen derx Not Available [facility] (Lab) [address], [place], [address], 11/19/2024 14:13:24 11/18/19 25 11/18/2024 TYPE/ RH/SC REEN ABO/Rh type O POS Not Available [facility] (Lab) [address], [place], [address], 11/19/2024 14:13:25 11/18/19 25 11/18/2024 TYPE/ RH/SC REEN antibody screen NEG Not Available [facility] (Lab) [address], [place], [address], 11/19/2024 14:13:25 11/18/19 25 11/18/2024 TYPE/ RH/SC REEN exp date 2024 23:59 Not Available [facility] (Lab) [address], [place], [address], 11/19/2024 14:13:25 11/18/19 25 11/18/2024 HIV 1/2 ANTIG EN/AN TIBOD Y, REFLE X CONFI RMATI ON HIV antigen/anti body Nonrea ctive nonrea ctive HIV-1 antig en and HIV-1 /HIV- 2 antib odies were not detec vlad. No labor atory evide nce of HIV infec tion. Not Available [facility] (Lab) [address], [place], [address], 11/19/2024 14:13:26 11/18/19 25 11/18/2024 HEPAT ITIS C ANTIB FUAD SCREE N, REFLE X TO CONFI RMATI ON hepatitis C antibody Non-re active non-re active Antib odies to HCV Not Detec vlad, does not exclu de the possi bilit y of expos ure to HCV. Not Available [facility] (Lab) [address], [place], [address], 11/19/2024 14:13:26 11/18/19 25 11/18/2024 HEPAT ITIS B SURFA CE ANTIG EN hepatitis B surface antigen Non-re active non-re active This assay was perfo rmed using [employer] n reage nts and test kits. Value s obtai costa with other assay metho ds or kits canno t be used inter puga eably . Not Available [facility] (Lab) [address], [place], [address], 11/19/2024 14:13:27 11/18/19 25 11/18/2024 RUBEL LA IGG ANTIB FUAD, QUANT rubella antibodies, IgG Reacti ve reacti ve Not Available [facility] (Lab) [address], [place], [address], 11/19/2024 14:13:27 11/18/19 25 11/18/2024 RUBEL LA IGG ANTIB FUDA, QUANT rubella antibodies, IgG quant 46.4 IU/mL >=10 Non-r eacti ve (Non- Immun e) <10 IU/mL React jose (Immu ne) > or = 10 IU/mL Not Available [facility] (Lab) [address], [place], [address], 11/19/2024 14:13:27 11/18/19 25 11/18/2024 RPR SCREE N, REFLE X TITER /CONF IRMAT ION RPR screen Nonrea ctive nonrea ctive Not Available [facility] (Lab) [address], [place], [address], 11/19/2024 14:13:28 11/18/19 25 11/18/2024 HEMOG LOBIN A1C hemoglobin A1C 4.9 % 4.0-5. 6 The Ameri can Diabe los Assoc iatio n recom mends that a prima ry goal of thera py claudia d be a HBA1C of < 7% and that physi cians shoul d reeva luate the treat ment regim en in patie nts with HBA1C value s consi stent ly > 8%. <5.7% Delisa l 5.7 - 6.4% Incre ased risk for diabe los >=6.5 % Diagn ostic of diabe los <7.0% Goal of thera py >8.0% Actio n sugge sted Not Available [facility] (Lab) [address], [place], [address], 11/19/2024 14:13:28 12/14/19 25 12/13/2024 CULTU RE: URINE result report SEE RESULT S BELOW Test: Cultu re: Urine Speci men Sourc e: Urine - Clean Catch Speci men Type: Urine Speci men Date: 2024 1430 Resul t Date: 20241 Resul t Statu s: Final resul t Abnor mal: No Resul ting Lab: [facility] [address] [facility] [address] Tel: CULTU RE ----- ----- ----- --- No growt h in 1 day (dete ction level of 10,00 0 colon ies / ml.) Not Available [facility] (Lab) [address], [place], [address], 12/14/2024 22:34:23 12/14/19 25 12/13/2024 drug scree n, urine Amphetamines : negati ve Not Available [place] [address], [place], [address], 12/13/2024 11:00:33 12/14/19 25 12/13/2024 drug scree n, urine Cannabinoids : negati ve Not Available [place] [address], [place], [address], 12/13/2024 11:00:33 12/14/19 25 12/13/2024 drug scree n, urine Cocaine: negati ve Not Available [place] [address], [place], [address], 12/13/2024 11:00:33 12/14/19 25 12/13/2024 drug scree n, urine Opiates: negati ve Not Available [place] [address], [place], [address], 12/13/2024 11:00:33 12/14/19 25 12/13/2024 drug scree n, urine Phenocyclidi ne: negati ve Not Available [place] [address], [place], [address], 12/13/2024 11:00:33 12/14/19 25 12/13/2024 drug scree n, urine Barbiturates : negati ve Not Available [place] [address], [place], [address], 12/13/2024 11:00:33 12/14/19 25 12/13/2024 drug scree n, urine Benzodiazepi frank: negati ve Not Available [place] [address], [place], [address], 12/13/2024 11:00:33 12/14/19 25 12/13/2024 drug scree n, urine Ethanol: negati ve Not Available [place] [address], [place], [address], 12/13/2024 11:00:33 12/14/19 25 12/13/2024 drug scree n, urine Hallucinogen s: negati ve Not Available [place] [address], [place], [address], 12/13/2024 11:00:33 12/14/19 25 12/13/2024 drug scree n, urine Inhalants: negati ve Not Available [place] [address], [place], [address], 12/13/2024 11:00:33 12/14/19 25 12/13/2024 drug scree n, urine Anabolic Steroids: negati ve Not Available [place] [address], [place], [address], 12/13/2024 11:00:33 11/08/19 25 11/08/2024 US, obste tric, 1st trime ster No observ ation record ed. [email or web address] [address], [place], [address], 11/09/2024 10:55:22 12/07/19 25 12/06/2024 US, obste tric, nucha l trans lucen cy No observ ation record ed. [email or web address] [address], [facility], [place], [address], 12/06/2024 17:43:55 12/07/19 25 12/06/2024 US, obste tric, nucha l trans lucen cy No observ ation [facility] ed. [email or web address] [address], [place], [address], 12/06/2024 17:36:02 12/26/19 25 12/25/2024 US, obste tric, limit ed No observ ation record ed. [email or web address] [place] [address], [place], [address], 12/25/2024 18:22:46 12/26/19 25 12/25/2024 US, obste tric, limit ed No observ ation record ed. [email or web address] [address], [place], [address], 12/26/2024 15:54:10 Result Notes None recorded. Problems Name Problem SNOMED Code Status Onset Date Resolution Date Notes Provider Name and Address Organization Details Recorded Time 54085832 Active 2024 Yesi barnhart, [facility] 10:13:17 Acid reflux 639781849 Active protonix Zurdo Pichardo MD [address], [place], [address], [facility] 10:37:40 Female steriliza tion Active Zurdo Pichardo MD [address], [place], [address], [facility] 10:50:16 Problem Notes None recorded. Procedures Surgical History Date Name Laterality Status Provider Name and Address Organization Details Recorded Time 11/08/19 25 Date of Last Pap Smear completed Yesi Mario [facility] 12/13/2024 10:12:36 08/12/20 22 completed Yesi Mario [facility] 05/12/2023 13:04:36 08/02/20 22 Date of Last Colonoscopy completed Yesi Mario [facility] 05/12/2023 13:06:10 colonoscopy completed Melony Valladares [facility] [address], [place], [address], [place] [facility] 05/12/2023 13:17:36 endoscopy completed Melony Valladares [facility] [address], [place], [address], [place] [facility] 05/12/2023 13:17:54 Imaging Results Imaging Date Name Status LastModified by Organization Details LastModified Time 11/08/2024 US, obstetric, 1st trimester completed [email or web address], [place], [address], 11/09/2024 10:55:22 12/06/2024 US, obstetric, nuchal translucency completed [email or web address], [place], [address], 12/06/2024 17:43:55 12/06/2024 US, obstetric, nuchal translucency completed [email or web address] [place] [address], [place], [address], 12/06/2024 17:36:02 12/25/2024 US, obstetric, limited completed [email or web address] [place] [address], [place], [address], 12/25/2024 18:22:46 12/25/2024 US, obstetric, limited completed [email or web address], [place], [address], 12/26/2024 15:54:10 Procedure Notes None recorded. Medical Equipment None Reported. Allergies No known drug allergies Medications Name Sig Start Date Stop Date Status Note LastModified by Organization Details LastModified Time doxycycline hyclate 100 mg capsule TAKE 1 CAPSULE BY MOUTH TWICE A DAY FOR 10 DAYS 05/12 completed Not Available Not Available Not Available fluconazole 150 mg tablet 04/27 completed Not Available Not Available Not Available ciprofloxac in 500 mg tablet 05/12 completed Not Available Not Available Not Available omeprazole 40 mg capsule,del ayed release 05/12 completed Not Available Not Available Not Available hydrocodone 7.5 mg-acetamin ophen 325 mg tablet 05/12 completed Not Available Not Available Not Available pantoprazol e 40 mg tablet,matthew yed release 11/08 completed Not Available Not Available Not Available ondansetron 4 mg disintegrat ing tablet DISSOLVE ONE TABLET ON THE TONGUE EVERY 8 HOURS NEEDED FOR NAUSEA 11/08 completed Not Available Not Available Not Available amoxicillin 875 mg-potassiu m clavulanate 125 mg tablet TAKE 1 TABLET BY MOUTH EVERY 12 HOURS 11/08 completed Not Available Not Available Not Available Sprintec (28) 0.25 mg-0.035 mg tablet Take 1 tablet every day by oral route. 05/12 completed Not Available Not Available Not Available iron active Not Available Not Availa ble Not Available active Not Available Not Avai lable Not Available Vitals Date Recorded Body height Body mass index (BMI) Body weight Systolic blood pressure Diastolic blood pressure Provider Name and Address Organization Details Last Updated DateTime 11/08/2024 170.18 cm 17.1 kg/m2 05095.57 g 112 mm[Hg] 76 mm[Hg] [facility] 14:39:15 Date Recorded Body height Body mass index (BMI) Body weight Systolic blood pressure Diastolic blood pressure Provider Name and Address Organization Details Last Updated DateTime 12/13/2024 170.18 cm 17.2 kg/m2 70143.16 g 97 mm[Hg] 67 mm[Hg] [facility] 10:11:59 Date Recorded Body weight Systolic blood pressure Diastolic blood pressure Provider Name and Address Organization Details Last Updated DateTime 12/24/2024 35544.1607 g 110 mm[Hg] 79 mm[Hg] [facility] 12/24/2024 10:09:09 Social History Question Answer Notes LastModified by Organizat ion Details LastModified Time Tobacco Smoking Status Never Smoker Sugey Valentin [facility] 10/20/2023 10:49:15 Do You Have An Advance Directive? No Information not available 04/27/2022 What Is Your Level Of Alcohol Consumption? Occasional Information not available 04/27/2022 How Many Years Have You Consumed Alcohol? 7 Information not available 04/27/2022 Are You Blind Or Do You Have Difficulty Seeing? No Information not available 04/27/2022 What Is Your Level Of Caffeine Consumption? None Information not available 04/27/2022 How Much Tobacco Do You Chew? None Information not available 04/27/2022 In The 14 Days Before Symptom Onset, Have You Had Close Contact With A Laboratory-confir med COVID-19 While That Case Was Ill? No Information not available 04/27/2022 In The 14 Days Before Symptom Onset, Have You Had Close Contact With A Person Who Is Under Investigation For COVID-19 While That Person Was Ill? No Information not available 04/27/2022 Have You Been To An Area Known To Be High Risk For COVID-19? No Information not available 04/27/2022 Are You Deaf Or Do You Have Serious Difficulty Hearing? No Information not available 04/27/2022 What Type Of Diet Are You Following? REGULAR Information not available 04/27/2022 What Is The Highest Grade Or Level Of School You Have Completed Or The Highest Degree You Have Received? 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 No Information not available 04/27/2022 Do You Use Protection During Sex? No Information not available 04/27/2022 Do You Use Your Seat Belt Or Car Seat Routinely? Yes Information not available 04/27/2022 Do You Have Smoke And Carbon Monoxide Detectors In Your Home? Yes Information not available 04/27/2022 At What Age Did You Start Smoking Tobacco? 0 Information not available 04/27/2022 How Much Tobacco Do You Smoke? No Information not available 04/27/2022 Do You Feel Stressed (tense, Restless, Nervous, Or Anxious, Or Unable To Sleep At Night)? [id number] Information not available 04/27/2022 Do You Use Any Illicit Or Recreational Drugs? No Information not available 04/27/2022 Do You Use Sunscreen Routinely? No Information not available 04/27/2022 How Many Years Have You Smoked Tobacco? 0 Information not available 04/27/2022 Have You Used IV Drugs? No Information not available 04/27/2022 Sex: Unknown Functional Status Question Answer Note LastModified by Organizat ion Details LastModified Time Do you have difficulty walking or climbing stairs? No [email or web address] Information not available 10/20/2023 Are you able to walk? YESWOREST Information not available 04/27/2022 Are you able to care for yourself? Yes [email or web address] Information not available 10/20/2023 Do you have difficulty dressing or bathing? No [email or web address] Information not available 10/20/2023 What is your exercise level? None Information not available 04/27/2022 Mental Status None recorded. Family History Nothing Reported. Medical History Condition Response Allergies (Food, seasonal, environmental ) N Other N Breast Cancer N Drug/Latex Allergies/Reactions N Blood Transfusion N Dermatologic Disorders N Lung Disease N Defects or Inherited Disease N Breast Problem N Gestational Diabetes N Hematologic disorders N Anesthesia Complications N History of STI N Deep Vein Thrombosis N Polycystic ovary syndrome N Anxiety Disorder N Autoimmune disease N Arthritis N Infertility N Polyps N Acid Reflux (GERD) Y History of abnormal pap N Cancer N Stroke N Varicosities N Neurologic/Epilepsy N Endometriosis N High Cholesterol N Headaches N Fibromyalgia N Kidney Disease N Heart Problems N Kidney or Bladder Problems N Thyroid Problems N GI Problems Y Eating Disorder N Anemia N Art (IVF or FET) N Psychiatric Illness N Ovarian Cancer N Diabetes N Pulmonary (TB, Asthma) N Hepatitis/Liver Disease N No Past Medical History N Eczema N Urinary Tract Infection N Abuse/Domestic Violence N Asthma N Trauma/Violence N Depression/ depression N Heart Disease N Pre-Eclampsia N Hypertension N Osteoporosis N Thrombophilias N Gynecological History Statement/Question Response Abnormal Pap N Flow Light Date of LMP 09/07/2024 N On BCP's at Conception? N STIs/STDs N Was last menstrual period normal Y HPV Vaccine N Duration of Flow (days) 4 Current Control Method Date of control 03/14/2022 Are cycles usually normal Y Date of Last Colonoscopy 08/02/2022 Frequency of Cycle (Q days) 28 Sexually Active? Y BCPs Menses Monthly Y Age of first menstrual cycle 10 Date of Last Pap Smear 11/08/2024 Sexual Problems? N LMP Definite 08/12/2022 N Obstetrics History GPAL:G 1 P 0 0 0 0 Past Encounters Encounter ID Performer Location Encounter Start Date Encounter Closed Date Diagnosis/Indication Diagnosis SNOMED-CT Code Diagnosis ICD10 Code Diagnosis Note [id number] NEL Donovan [facility] [address] [address] 04/27/2022 15:35:30 04/27/2022 16:49:33 Gynecologic examination 96805464 Z01.419 Take Calcium with Vitamin D 1200mg daily if not receiving in daily diet. It is strongly advised to have an annual flu shot and up can obtain at most pharmacies . If you have not had a TDap shot in the last 10 years you should obtain one as well. Discussed with patient & provided with informatio n regarding Gardisil vaccine to prevent the 4 strains for HPV that cause cervical cancer if under age 26. Encourage safe sexual practices, to use condoms and limit partners if not already in a monogamous relationsh ip. Do monthly self breast exams. Have mammogram yearly or every other year depending on family history. BRCA testing is now available for patients with strong genetic history of female cancer. If interested contact the office. Engage in daily exercise of low impact aerobic exercise 45-60 minutes 4-5 times weekly. Avoid tobacco and illicit drugs as well as using moderation with alcohol intake less than 1-2 8 oz beverages daily. This lifestyle behavior pattern will lead to less health conditions and longer life span. If BMI greater than 25 weight watchers or dietary consult advised. Patient received above instructio ns, and questions have been answered. If you have any questions please call or respond to this email. Patient was made aware of the patient portal and may obtain a paper copy of today's plan if desired. WWEMedical hx : IBSOCP for control, happy with this method.She denies hx of DVT/PE, HTN, stroke/NV, cancer, liver disease, or migraine with auraShe is non-smoker States her mother had a DVT on the nuvaring, was not diagnosed with any genetic condition or clotting conditionR /B of OCP discussed and accepted by patientNo hx of abnormal papsPap done todaySTI testing declinedge netic testing, discussedR TC in 1 year or sooner if needed [facility] ion care management [id number] Z30.9 [id number] Meloyn Valladares , [facility] [address],[facility] [place] [address] 05/12/2023 12:49:14 05/12/2023 13:34:27 Gynecologic examination 00248727 Z01.419 Take Calcium with Vitamin D 1200mg daily if not receiving in daily diet. It is strongly advised to have an annual flu shot and up can obtain at most pharmacies . If you have not had a TDap shot in the last 10 years you should obtain one as well. Discussed with patient & provided with informatio n regarding Gardisil vaccine to prevent the 4 strains for HPV that cause cervical cancer if under age 26. Encourage safe sexual practices, to use condoms and limit partners if not already in a monogamous relationsh ip. Do monthly self breast exams. Have mammogram yearly or every other year depending on family history. BRCA testing is now available for patients with strong genetic history of female cancer. If interested contact the office. Engage in daily exercise of low impact aerobic exercise 45-60 minutes 4-5 times weekly. Avoid tobacco and illicit drugs as well as using moderation with alcohol intake less than 1-2 8 oz beverages daily. This lifestyle behavior pattern will lead to less health conditions and longer life span. If BMI greater than 25 weight watchers or dietary consult advised. Patient received above instructio ns, and questions have been answered. If you have any questions please call or respond to this email. Patient was made aware of the patient portal and may obtain a paper copy of today's plan if desired. Pap/hpv due q3yrs per asccp unless otherwise indicatedS TD Screen declinedGe netic Screen discussedC olon Screen naDexa Screen naRoutine Labs PCPTaking PNVActivel y trying to conceive.T kylee test after late by 1wk LMP. [id number] Melony Valladares , [facility] [address],[facility] [place] [address] 10/20/2023 10:47:46 10/20/2023 11:25:25 Abnormal uterine bleeding [id number] 9100 N93.9 The patient and I discussed the various causes of abnormal uterine bleeding, including polyps, fibroids, hyperplasi a, atypia, anovulatio n, etc. We reviewed the typical evaluation with labs, pelvic US and possible endometria l biopsy. Briefly discussed the options available for treatment (depending on the results of evaluation ) such as hormonal treatment (OCPs, progestins ), Mirena, endometria l ablation, and surgery. We spent more than 38 minutes face to face. Reproducti ve care management [id number] Z31.9 Trying to achieve pregnancyH as almost been a year and not reached her goalConsid ering fertility testing for both partnersWi ll start work up todayMeet to discuss results and next steps in POC [id number] Valentina Durantess [facility] [address],[facility] [place] [address] 10/27/2023 09:51:35 10/27/2023 10:25:34 Irregular periods 05330037 N92.6 [id number] Melony Valladares , [facility] [address],[facility] [place] [address] 11/03/2023 09:28:43 11/03/2023 10:29:07 Paraovarian cyst 170312070 Q50.5 Today we discussed her USLikely this area is resolving and is extremely small on imaging.We agreed to monitor since she is asymptomat ic except for some irregular very light spotting that has been happening between cycles.We decided to do one month of slynd POP to see if this helps intermenst rual spotting.W ill reach out if any further issues past this and continue to monitor.Junaid morris verbalized .Counseled on medication R/B's, Most common side effects, & use. All questions were answered to patient satisfacti on. Time spent in visit is a total of 25mins with at least 50% of visit consisting of counseling and review of plan of care. Reproducti ve care management 492873500 Z31.9 Trying to achieve pregnancyH as almost been a year and not reached her goalReview ed her lab work today which appears wnlOffered referral to [facility] which she will consider.S adis PCP is going to order sperm count testing for spouse.Artur singer reach out if wants recent labs sent to a fertility clinic. [id number] [facility] [address],[place] [address] 11/08/2024 13:46:25 11/08/2024 14:27:45 [id number] Zurdo Pichardo MD [facility] [address],[place] [address] 11/08/2024 13:47:02 11/08/2024 15:09:38 Amenorrhea 17144965 N91.2 this patient is a 29-year-ol d female who presents for amenorrhea . She is a positive test. Ultrasound revealed a 1st trimester gestation. Patient has no complaints . We talked about early care. Talked about genetic screening. We talked about her ultrasound results. We talked about the 12 week ultrasound that has genetic screening components . She was given recommenda tions on exercise, diet, over-the-c ounter medication s. We reviewed her obstetric history. We reviewed her medical history. We reviewed her social history. She will begin routine care at her next visit. [id number] [facility] [address],[place] [address] 12/06/2024 12:34:20 12/06/2024 14:21:34 screening [id number] Z36.82 Z3A.12 [id number] Zurdo Pichardo MD [facility] [address],[place] [address] 12/13/2024 10:01:44 12/16/2024 05:59:05 Routine care 143801413 Z34.91 [id number] Zurdo Pichardo MD [facility] [address] [address] 12/24/2024 09:38:04 12/24/2024 10:27:59 Routine care [id number] Z34.91 [id number] Ricarda Babb [facility] [address] [address] 12/25/2024 14:48:52 12/25/2024 15:57:21 Spotting per vagina in [id number] O26.852 Z3A.15 Health Concerns Section Related Observation LastModified by Organization Detai ls LastModified Time None Recorded Concern Status LastModified by Organization Details LastModified Time None Recorded Advance Directives Directive N: Payers Encounter Date Sequence Insurance Name Policy Number Policy Del Cid Covered Member ID Del Cid Member ID Guarantor Name 11/08/2024 1 [place] [id number] Samm Palacios [id number] Merlyn Palacios 12/06/2024 1 [place] [id number] Samm Palacios [id number] Merlyn Palacios 12/13/2024 1 [place] [id number] Samm Palacios [id number] Merlyn Palacios 12/24/2024 1 [place] [id number] Samm Palacios [id number] Merlyn Palacios 12/25/2024 1 [place] [id number] Samm Palacios [id number] Merlyn Palacios Notes Date Note Type Note Provider Name and Address Organization Details Recorded Time 11/08/2024 text/html this patient is a 29-year-old female who presents for amenorrhea. She is a positive test. Ultrasound revealed a 1st trimester gestation. Patient has no complaints. We talked about early care. Talked about genetic screening. We talked about her ultrasound results. We talked about the 12 week ultrasound that has genetic screening components. She was given recommendations on exercise, diet, leyb-bve-ryrsraq medications. We reviewed her obstetric history. We reviewed her medical history. We reviewed her social history. She will begin routine care at her next visit. Zurdo Pichardo MD [address], [place], [address], [place] [facility] 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 Status 12/14/19 25 1 O Positive 109 Samm OPEN Fetus Data First Name Last Name Admitted to NICU Weight (g) Sex Living Outcome Pediatric Complications Fetus ID Race Codes Race Delivery Type [id number] Problems Problem Notes Problem Name Start Date End Date Resolution Snomed Code Not e Female sterilization [id number] Acid reflux [id number] protonix Ke Calculation Initial Ke Date Initial Exam Date Initial Exam Provider Initial Ultrasound Date Last Menstrual Period Date Ultra Sound Weeks Gestation 12/13/2024 11/08/2024 09/07/2024 9 Eighteen To Twenty Week Ke Update Ultra Sound Date Fundal Height At Umbil Quickening Date Ultra Sound Latest Weeks Gestation Final Ke Confirmed By Final Ke Confirmed Date Final Ke Date Ultra Sound Latest Days Gestation 0 [email or web address] 12/13/2024 06/14/20 25 0 Pre- Flowsheet Flowsheet Date 12/13/2024 Machado Score Blood Edema Fundus Height Fundus Units Glucose Ketones Leukocytes Nitrite Labor Signs Protein Cervic Dilation Cervic Effacement Cervic Station Type Weight in lbs Pre/Post Dialysis Refused Weight 110.825149921331 BP Diastolic BP Location Tested BP Systolic BP Type 67 L arm 97 sitting Fetus Heart Rate Present A 158 Present Fetus Movement Comments this patient is a 29-year-ol d primiparous female at 14 weeks' gestation who presents for initial care. Her medical, surgical, obstetric history is unremarkable. She is vaccinated. She was given precautions recommendations for . We talked about vaccines in . Talked about care in detail. She is having genetic testing. She had a normal 12 week ultrasound. To begin routine care. Flowsheet Date 12/24/2024 Machado Score Blood Edema Fundus Height Fundus Units Glucose Ketones Leukocytes Nitrite Labor Signs Protein Cervic Dilation Cervic Effacement Cervic Station Type Weight in lbs Pre/Post Dialysis Refused 110.612276812273 BP Diastolic BP Location Tested BP Systolic BP Type 79 L arm 110 sitting Fetus Heart Rate Present A 156 Present Fetus Movement A No Comments no complaints, no problems, routine care, no contractions, no vaginal bleeding, no loss of fluid, no cramping Flowsheet Date 12/25/2024 Machado Score Blood Edema Fundus Height Fundus Units Glucose Ketones Leukocytes Nitrite Labor Signs Protein Cervic Dilation Cervic Effacement Cervic Station Type Weight in lbs Pre/Post Dialysis Refused BP Diastolic BP Location Tested BP Systolic BP Type Fetus Heart Rate Present Fetus Movement Comments Menstrual History Last Menstrual Date Menses Monthly On Bcp Conception Prior Menses Frequency Hcg Plus Date Menarche Onset Age 1209/07/2024 true 26 Delivery Information Delivery Date Delivery Type Labor Anesthesia Weeks Gestation Incision Type Labor Labor Length Hrs Delivered By Post Complications Tubal Sterilization Discharge Date Comments Discharge Information Feeding Method Contraceptive Method Maternal HG B and HCT Levels
== END 2025-01-22 08:38 | disposition home or self-care (01) ==
PROVIDERS: Emergency Provider Nurse Practitioner; PCP Nurse Practitioner Family
DX: O99.712 Diseases of the skin and subcutaneous tissue complicating pregnancy, second trimester (principal); Z3A.19 19 weeks gestation of pregnancy; L29.0 Pruritus ani; O99.612 Diseases of the digestive system complicating pregnancy, second trimester; K21.9 Gastro-esophageal reflux disease without esophagitis; O99.012 Anemia complicating pregnancy, second trimester; D50.9 Iron deficiency anemia, unspecified
CPT/HCPCS: 99213; G0463

== ENCOUNTER 2025-06-01 19:44 | Inpatient (IN) | payer BC, SELFPAY ==
[2025-06-01] VITALS (33 sets, daily range): BP systolic 98–144; BP diastolic 45–86; PULSE 79–104; TEMP 36.2–36.6; O2SAT 96–100; BMI 21.9
[2025-06-01 20:44] LABS: Hematocrit 34.1 % (37.0-47.0); Hemoglobin 11.3 g/dL (12.0-15.0); Immature Granulocyte Percent A 0.7 % (0-0.5); Lymphocytes Absolute Auto 2.03 K/mm3 (0.9-3.2); Mean Corpuscular HGB Conc 33.1 g/dl (32-36); Mean Corpuscular Hemoglobin 30.0 pg (26-34); Mean Corpuscular Volume 90.5 fl (80-100); Nucleated Red Blood Cells Absolute Auto 0.000 K/mm3 (0.0-0.012); Nucleated Red Blood Cells Perc 0.0 % (0.0-0.2); Platelet Count Result 158 k/mm3 (150-375); Red Blood Count 3.77 M/mm3 (4.2-5.4); White Blood Count 10.8 K/mm3 (4.5-10.0)
--- NOTE | 2025-06-01 21:13 | LDADM ---
This patient, Merlyn Palacios, was admitted to Labor/Delivery/Recovery 107 on 06/01/25 at 19:44. Plans for labor, pain management and were discussed with patient. Patient/family oriented to hospital policies and general routines including ID bracelet, bed and alarms, visiting hours, pain management, procedures, bathroom and other care routines, personal items, smoking policy, room service/diet and guest tray routines, security routines, and visiting hours. Patient/Family are encouraged to report perceived risks to care and to ask questions if they do not understand what they are told or what they should do. See OBIX for further documentation.
[2025-06-01] MEDS: LACTATED RINGERS 1,000 ML 125 ML IV CONT (21:18)
[2025-06-01 21:19] LABS: Syphilis IgG/IgM Antibody Non-Reactive (Nonreactive)
[2025-06-01] MEDS: OXYTOCIN 30 UNITS/NS 500 ML 30 UNITS/500 ML BAG IV CONT (21:19)
--- NOTE | 2025-06-01 23:15 | P.PNAN_ITS ---
Anes - Eval Pre Procedure Procedure: Labor epidural Date/Time: 06/01/25 23:15 Surgeon: tomas Preop Diagnosis: pain during labor Pre Op Diagnosis: SROM Patient Data Age: 29 Gender: F Height: 1.7 m Weight: 63.63 kg Last Vital Signs Temp 36.2 C L 06/01/25 22:00 Pulse 79 06/01/25 23:01 BP 132/77 06/01/25 23:01 Pulse Ox 98 06/01/25 23:10 O2 Del Method Room Air 06/01/25 21:11 Allergies Allergy/AdvReac Type Severity Reaction Status Date / Time No Known Allergies Allergy Verified 06/01/25 21:53 Home Medications ?Medication ?Instructions ?Recorded ?Confirmed ?Type docosahexaenoic acid 200 mg 200 mg PO DAILY 10/11/24 0 06/01/25 History capsule ( DHA) ferrous sulfate 325 mg (65 mg 325 mg PO DAILY 10/11/24 06/01/25 History iron) tablet pantoprazole 40 mg tablet,delayed 40 mg PO QAM #90 tab s 02/12/25 06/01/25 Rx release Laboratory Tests 06/01/25 20:33 WBC 10.8 H K/mm3 (4.5-10.0) RBC 3.77 L M/mm3 (4.2-5.4) Hgb 11.3 L g/dL (12.0-15.0) Hct 34.1 L % (37.0-47.0) MCV 90.5 fl (80-100) MCH 30.0 pg (26-34) MCHC 33.1 g/dl (32-36) RDW 13.1 % (11.5-14.5) Plt Count 158 k/mm3 (150-375) MPV 12.5 H fl (7.4-10.4) Immature Gran % (Auto) 0.7 H % (0-0.5) Neut % (Auto) 73.7 H % (45.5-73.1) Lymph % (Auto) 18.8 % (18.3-44.2) Hand % (Auto) 6.3 % (2.6-8.5) Eos % (Auto) 0.3 % (0-4.4) Baso % (Auto) 0.2 % (0.2-1.2) Lymph # (Auto) 2.03 K/mm3 (0.9-3.2) Hand # (Auto) 0.7 H K/mm3 (0.1-0.6) Eos # (Auto) 0.0 K/mm3 (0-0.3) Baso # (Auto) 0.0 K/mm3 (0.0-0.1) Abs Immat Gran (auto) 0.08 H K/mm3 (0.00-0.031) Absolute Neuts (auto) 7.9 H K/mm3 (1.3-6.7) Absolute Nucleated RBC 0.000 K/mm3 (0.0-0.012) Nucleated RBC % 0.0 % (0.0-0.2) Syphilis IgG/IgM Ab Non-reactive (Nonreactive) Blood Type O Positive Antibody Screen Negative Patient hx anesthesia problems: none Family hx anesthesia problems: none Results Review: All pre-operative results and documents have been reviewed as part of the pre- operative evaluation. [facility] Past Medical History Medical History (Updated 06/01/25 @ 23:16 by Radha Pedraza CRNA) IUP (intrauterine ), incidental ADHD Anxiety Insomnia Positive home test BMI < 18.5 Iron deficiency anemia Gastritis Encounter to establish care Left hip pain Anemia GERD (gastroesophageal reflux disease) IBS (irritable bowel syndrome) Family History Family History Other Alcohol abuse Mother Cancer Grandparent Depression Social History Social History Smoking status: Never smoker Second hand tobacco smoke exposure: No Alcohol intake: current Alcohol use details: Rarely maybe one time a year Substance use: never Substance use type: does not use Do You Feel Safe in your Home?: Yes Lack of Transportation: No Lack of Food: Never True Current Housing: I Have Housing Concerned About Future Housing: No Difficulty Paying Gas/Electric Bills: No Difficulty Paying for Meds: No Currently Unemployed: No Education: Master's Degree or Higher Difficulty w/ Childcare or Family Care: No Living arrangements: with family Occupation/Education: occupation Gender identity (if verbalized by the patient): Female Sexual Orientation (if Verbalized by the Patient): Straight or Heterosexual Spiritual care concerns: No Agree to blood products: Yes Exam Day of Procedure 06/01/25 23:15
[2025-06-02] VITALS (77 sets, daily range): BP systolic 82–145; BP diastolic 38–90; PULSE 60–182; RESP 16–18; TEMP 36.4–37.9; O2SAT 91–100
[2025-06-02] MEDS: LACTATED RINGERS 1,000 ML 125 ML IV CONT (00:01)
[2025-06-02] MEDS: AMPICILLIN SODIUM 2 GM in SODIUM CHLORIDE 0.9% IV 100 ML 200 ML IVPB (04:24)
[2025-06-02] MEDS: OXYTOCIN 30 UNITS/NS 500 ML 30 UNITS/500 ML BAG 999 UNITS IV CONT (07:57)
[2025-06-02] MEDS: LIDOCAINE 1% LOCAL INJ 20 ML VIAL (07:58)
--- NOTE | 2025-06-02 08:18 | PM.OBPRVD ---
OB - Vaginal Delivery Note Procedure Delivery date: 06/02/25 Induction method: None Delivery augmentation: Pitocin Delivery monitor: External FHT and External Uterine Route of delivery: Episiotomy description: None Laceration Description: Perineal - 2nd Degree Delivery repair: vicryl Quantitative Blood Loss (ml): 400 Anesthesia type: Epidural Disposition: Floor Complications: No immediate complications
[2025-06-02] MEDS: OXYTOCIN 30 UNITS/NS 500 ML 30 UNITS/500 ML BAG 125 UNITS IV CONT (08:47)
[2025-06-02] MEDS: IBUPROFEN 600 MG TABLET PO ×3 (08:50→23:45)
[2025-06-02] MEDS: MULTIVIT/MIN/PREN/FOL AC/IRON TABLET 1 TAB PO (09:34)
[2025-06-02] MEDS: BENZOCAINE 20% AER SPR (*SP) 56 GM CAN 1 SPRAY TOPICAL (09:35)
[2025-06-02] MEDS: WITCH HAZEL 40 PADS 1 PAD TOPICAL (09:35)
--- NOTE | 2025-06-02 10:22 | OBPPTRN ---
Patient transferred to post room # 287 via wheelchair. Support person present. Oriented to unit, room, information board, rooming in, admission packet and security measures. Patient verbalizes understanding.
--- NOTE | 2025-06-02 11:45 | PC.NURSE ---
Introductions were made, then consulted with patient to assess needs related to . Discussed with mother her?plans to feed?her and the?experience so far. Baby was off and on the breast at the first feeding and mom states she was able to latch him on her own. Reviewed that this is expected since they are both learning. Resources provided for inpatient and outpatient services with the feeding sheet, mom/baby guide and name written on the communication board. Mother voiced understanding of information and will call if there is a request for assistance. Reported to the Primary RN.
--- NOTE | 2025-06-02 16:45 | PC.NURSE ---
Mother requested feeding assistance. She has attempted to wake and feed baby without success. Baby is skin to skin and we moved him off mom's chest and stimulated him to wake. He did not cry or open his eyes. When placed back at breast, he licked the nipple a few times but gave no real effort to latch. Mom agrees to a blood sugar check since it has been 6 hours since the last feeding. Bedside glucose was 57 and the bolt cutter is fine with allowing baby a little more time to wake and breastfeed. Mom is open to supplementing if needed. She brought her own Spectra pump and pumped this afternoon. We measured her for the flange size and she measures at 16mm, so a 19mm insert is recommended. Educated patient that it is normal not to see colostrum with a pump but that baby is able to remove thick milk better by massaging the milk ducts during . Patient is going to watch for early feeding cues or try again within an hour if baby has not awakened. Suggested she begin feedings with skin to skin. Patient verbalized understanding and her significant other was present and supportive. Primary RN notified.
[2025-06-02] MEDS: ACETAMINOPHEN 325 MG TABLET 650 MG PO (18:28)
[2025-06-03 03:49] VITALS: BP 100/64; PULSE 85; RESP 16; TEMP 36.3; O2SAT 95
[2025-06-03 05:59] LABS: Hematocrit 27.0 % (37.0-47.0); Hemoglobin 8.7 g/dL (12.0-15.0)
[2025-06-03 07:45] VITALS: BP 106/76; PULSE 64; RESP 18; TEMP 36.6; O2SAT 99
[2025-06-03] MEDS: MULTIVIT/MIN/PREN/FOL AC/IRON TABLET 1 TAB PO (08:39)
[2025-06-03] MEDS: DOCUSATE SODIUM 100 MG CAPSULE PO ×2 (08:39→17:15)
--- NOTE | 2025-06-03 15:15 | PC.NURSE ---
1515. Observed mother latching to the left breast in cross cradle position. Infant was able to maintain an appropriate latch. Mother declines nipple pain/discomfort throughout feeding. Mom explains infant breast feed well overnight but was very sleepy this morning so he was given one bottle. She reports she has no pain with feedings and feels confident latching infant by herself. Encouraged mother to keep awake and nursing at the breast for as long as baby desires. Mother taught to listen for infant swallowing during feedings. Reviewed using the blue feeding sheet to record time and duration of feeding. Mother voiced understanding of the education shared, to call for assistance if the does not latch or if there is discomfort with . name/number on communication board. Reported to the Primary RN.?
[2025-06-03 19:20] VITALS: BP 113/79; PULSE 70; RESP 16; TEMP 36.3; O2SAT 100
--- NOTE | 2025-06-03 21:08 | P.PNOB_ITS ---
OB - PN: Subj Subjective Date/time seen: 06/03/25 21:08 Interval history: PPD#1 s/p Doing well, pain controlled Voiding without issue Tolerating general diet OB - PN: Obj Data Labs 06/03/25 03:55 Labs: Laboratory Results - last 24 hr 06/03/25 03:55 Hgb 8.7 L Hct 27.0 L OB - PN A/P Assessment and Plan (1) (spontaneous vaginal delivery): Code(s): O80 - Encounter for full-term uncomplicated delivery Status: Acute Plan day: 1 Plan: routine care Time Spent With Patient Time: Total time spent is greater than 50% in coordination of care (as documented) at patient's floor/unit and/or counseling patient: Review of Systems 2 Review of Systems: All systems reviewed & are unremarkable except as noted in HPI and below Exam 2 Const: General: comfortable and no acute distress O rientation/consciousness: patient oriented x3 Resp: Effort & Inspection: normal respiratory effort
--- NOTE | 2025-06-04 07:46 | P.PNOB_ITS ---
OB - PN: Subj Subjective Date/time seen: 06/04/25 07:46 Interval history: PPD#2 s/p Doing well, pain controlled Voiding without issue Tolerating general diet OB - PN: Obj Data Labs 06/03/25 03:55 OB - PN A/P Plan day: 2 Plan: routine care and discharge home Time Spent With Patient Time: Total time spent is greater than 50% in coordination of care (as documented) at patient's floor/unit and/or counseling patient: Review of Systems 2 Review of Systems: All systems reviewed & are unremarkable except as noted in HPI and below Exam 2 Const: General: cooperative, healthy appearing and comfortable Eyes: General: appearance normal, both eyes and all related structures Neck: Neck: normal visual inspection GI: Inspection: normal to inspection Skin: General skin exam: normal color
--- NOTE | 2025-06-04 07:48 | PM.OBDSVD ---
DS: Admitting Diagnosis Discharge Date Admitting Diagnosis labor DS: Discharge Diagnosis Discharge Diagnosis (1) (spontaneous vaginal delivery): Code(s): O80 - Encounter for full-term uncomplicated delivery Status: Acute OB - DS: Summary OB Procedures : None OB Procedures Intrapartum: Spontaneous Vag Delivery OB Procedures: : None Peripartum Data Laceration Description: Perineal - 2nd Degree Episiotomy description: None Time Spent with Patient Time attestation: Total time spent providing and/or coordinating discharge services: Discharge Plan Discharge Attending physician on discharge: Zurdo Pichardo Discharging Clinician: Amina Rice Patient Disposition: Home Activity: pelvic rest Diet: regular Patient Instructions: Antibiotic Form Patient Language: Amharic Stand Alone Forms: General Discharge Information Follow-up/Referrals: Zurdo Pichardo MD [Physician, IN [employer]ASSRO[employer] TUTOR] - 4 Weeks Discharge Medications: Continued ferrous sulfate 325 mg (65 mg iron) tablet 325 mg PO DAILY DHA 200 mg capsule 200 mg PO DAILY pantoprazole 40 mg tablet,delayed release (DR/EC) 40 mg PO QAM Qty: 90 3RF Date of admission: 06/01/25 19:44 Primary Care Provider: Cristina Mcneil Admitting Provider: Zurdo Pichardo Attending physician on admission: Zurdo Pichardo Condition: Stable
[2025-06-04] MEDS: MULTIVIT/MIN/PREN/FOL AC/IRON TABLET 1 TAB PO (08:23)
[2025-06-04] MEDS: DOCUSATE SODIUM 100 MG CAPSULE PO (08:23)
[2025-06-04 09:50] VITALS: BP 95/51; PULSE 82; RESP 18; TEMP 36.7; O2SAT 100
[2025-06-04] MEDS: LOPERAMIDE HCL 2 MG CAPSULE 4 MG PO (11:09)
[2025-06-04 13:55] VITALS: BP 114/77; PULSE 65; RESP 18; TEMP 36.7; O2SAT 100
[2025-06-06 11:26] VITALS: BP 102/69; PULSE 91; RESP 16; TEMP 36.7; O2SAT 99
== END 2025-06-04 17:36 | disposition home or self-care (01) | DRG 807 ==
LOC: ANHLDR 20:12 → ANHOB2 06-02 10:56
PROVIDERS: Admitting Provider Obstetrics & Gynecology; PCP Nurse Practitioner Family; Visit Provider Obstetrics & Gynecology
DX: O70.1 Second degree perineal laceration during delivery (principal); Z37.0 Single live birth; Z3A.38 38 weeks gestation of pregnancy
CPT/HCPCS: 36415; 82948; 85014; 85018; 85025; 86593; 86850; 86900; 86901; A9270; J0290; J2003; J2590; J2795; J7120

== ENCOUNTER 2025-06-05 09:22 | Emergency (ER) | payer BC, SELFPAY ==
[2025-06-05 09:24] VITALS: BP 111/75; PULSE 93; RESP 18; TEMP 36.7; O2SAT 100
[2025-06-05 09:29] VITALS: PULSE 81; RESP 16; O2SAT 99
--- NOTE | 2025-06-05 09:37 | ED_ITS ---
HPI - General Adult General Chief complaint: Weakness Stated complaint: decreased appetite, weak, 4 days Time Seen by Provider: 06/05/25 09:30 History of Present Illness HPI narrative: 29-year-old female presents ER complaining of nausea and vomiting of days. Patient states that she has been experiencing symptoms since giving on Monday. Patient states she becomes nauseated of normal ROM to and experiencing high anxiety situations. Denies abdominal pain. Denies fevers. Related Data Home Medications ?Medication ?Instructions ?Recorded ?Confirmed ?Last Taken ?Type docosahexaenoic acid 200 mg 200 mg PO DAILY 10/11/24 0 06/01/25 06/01/25 History capsule ( DHA) ferrous sulfate 325 mg (65 mg 325 mg PO DAILY 10/11/24 06/01/25 06/01/25 History iron) tablet Allergies Allergy/AdvReac Type Severity Reaction Status Date / Time No Known Allergies Allergy Verified 06/05/25 09:37 Review of Systems 2 Review of Systems: All systems reviewed & are unremarkable except as noted in HPI and below PMFSH Past Medical History Medical History (Updated 06/05/25 @ 10:54 by Dante Stone, REBECCA) IUP (intrauterine ), incidental ADHD Anxiety Insomnia Positive home test BMI < 18.5 Iron deficiency anemia Gastritis Encounter to establish care Left hip pain Anemia GERD (gastroesophageal reflux disease) IBS (irritable bowel syndrome) Family History Family History Other Alcohol abuse Mother Cancer Grandparent Depression Social History Social History Smoking status: Never smoker Second hand tobacco smoke exposure: No Alcohol intake: current Alcohol use details: Rarely maybe one time a year Substance use: never Substance use type: does not use Do You Feel Safe in your Home?: Yes Lack of Transportation: No Lack of Food: Never True Current Housing: I Have Housing Concerned About Future Housing: No Difficulty Paying Gas/Electric Bills: No Difficulty Paying for Meds: No Currently Unemployed: No Education: Master's Degree or Higher Difficulty w/ Childcare or Family Care: No Living arrangements: with family Occupation/Education: occupation Gender identity (if verbalized by the patient): Female Sexual Orientation (if Verbalized by the Patient): Straight or Heterosexual Spiritual care concerns: No Agree to blood products: Yes Exam 2 Const: General: healthy appearing and no acute distress Nutritional Appearance: well nourished and thin Orientation/consciousness: patient oriented x3 Limitations: no limitations HENMT: Head: normal to inspection Eyes: Conjunctivae: conjunctivae normal Pupils: Equal, round and reactive pupils present EOM: EOMs intact bilaterally Neck: Neck: normal visual inspection Chest: Chest palpation & inspection: normal inspection of the chest Resp: Effort & Inspection: normal respiratory effort Auscultation: clear to auscultation bilaterally Cardio: Rate: regular rate Rhythm: regular rhythm GI: GI Palp: Yes Soft to palpation Auscultation: normal bowel sounds Skin: General skin exam: normal color Rashes: no rashes Wounds: no wounds Neuro: General: patient oriented x3, moves all extremities and CN's II-XI intact bilaterally Speech: normal speech Gait exam (Neuro): Normal gait present Extrem: General: normal to inspection Psych: Mental Status: mental status grossly normal Affect: Sad affect present and Anxious affect present Attitude: cooperative Course Vital Signs Vital signs: Vital Signs Temperature 36.7 C 06/05/25 09:24 Pulse Rate 93 06/05/25 09:24 Respiratory Rate 18 06/05/25 09:24 Blood Pressure 111/75 06/05/25 09:24 Pulse Oximetry 100 06/05/25 09:24 Temperature 36.7 C 06/05/25 09:24 Pulse Rate 81 06/05/25 09:29 Respiratory Rate 16 06/05/25 09:29 Blood Pressure 111/75 06/05/25 09:24 Pulse Oximetry 99 06/05/25 09:29 Oxygen Delivery Room Air 06/05/25 09:29 Medical Decision Making [facility] Narrative Medical decision making narrative: In summary: 29-year-old female presents to the ER complaining of nausea vomiting and anxiety for several days. Lab work was reassuring. Patient was given fluids, droperidol. On reexamination, patient reported improvement of her symptoms. Able to tolerate oral fluids. Discharged home in stable condition Vital Signs Vital Signs: Vital Signs Temperature 36.7 C 06/05/25 09:24 Pulse Rate 93 06/05/25 09:24 Respiratory Rate 18 06/05/25 09:24 Blood Pressure 111/75 06/05/25 09:24 Pulse Oximetry 100 06/05/25 09:24 Temperature 36.7 C 06/05/25 09:24 Pulse Rate 81 06/05/25 09:29 Respiratory Rate 16 06/05/25 09:29 Blood Pressure 111/75 06/05/25 09:24 Pulse Oximetry 99 06/05/25 09:29 Oxygen Delivery Room Air 06/05/25 09:29 Lab Data 06/05/25 09:47 06/05/25 09:47 Labs: Lab Results 06/05/25 06/05/25 06/05/25 Range/Units 09:36 09:47 09:47 WBC 10.0 (4.5-10.0) K/mm3 RBC 3.54 L (4.2-5.4) M/mm3 Hgb 10.7 L (12.0-15.0) g/dL Hct 32.3 L (37.0-47.0) % MCV 91.2 (80-100) fl MCH 30.2 (26-34) pg MCHC 33.1 (32-36) g/dl RDW 13.2 (11.5-14.5) % Plt Count 222 (150-375) k/mm3 MPV 11.4 H (7.4-10.4) fl Immature Gran % (Auto) 0.9 H (0-0.5) % Neut % (Auto) 74.9 H (45.5-73.1) % Lymph % (Auto) 19.3 (18.3-44.2) % [place] % (Auto) 4.0 (2.6-8.5) % Eos % (Auto) 0.6 (0-4.4) % Baso % (Auto) 0.3 (0.2-1.2) % Lymph # (Auto) 1.94 (0.9-3.2) K/mm3 [place] # (Auto) 0.4 (0.1-0.6) K/mm3 Eos # (Auto) 0.1 (0-0.3) K/mm3 Baso # (Auto) 0.0 (0.0-0.1) K/mm3 Abs Immat Gran (auto) 0.09 H (0.00-0.031) K/mm3 Absolute Neuts (auto) 7.5 H (1.3-6.7) K/mm3 Absolute Nucleated RBC 0.000 (0.0-0.012) K/mm3 Nucleated RBC % 0.0 (0.0-0.2) % Sodium 137 (137-145) mmol/L Potassium 3.7 (3.4-5.0) mmol/L Chloride 105 (98-107) mmol/L Carbon Dioxide 24 (22-30) mmol/L Anion Gap 8 (4-12) mmol/L BUN 11 (7-17) mg/dL Creatinine 0.74 (0.7-1.0) mg/dL Estim Creat Clear Calc 86 ml/min Estimated GFR > 60 (59 - ) Glucose 97 (65-110) mg/dL Calcium 8.9 (8.4-10.2) mg/dL Total Bilirubin 0.5 (0.2-1.3) mg/dL AST 35 (14-36) U/L ALT 20 (6-35) U/L Alkaline Phosphatase 166 H (38-126) U/L Total Protein 6.5 (6.3-8.2) g/dL Albumin 3.7 (3.5-5.1) g/dL Lipase 40 Cancelled (23-300) U/L Urine Color Yellow (Yellow) Urine Appearance Cloudy H (Clear) Urine pH 7.5 (5.0-9.0) Ur Specific [place] 1.014 (1.001-1.035) Urine Protein 1+ H (Negative) mg/dL Urine Glucose (UA) Negative (Negative) mg/dL Urine Ketones 3+ H (Negative) mg/dL Ur Blood (Man) 3+ H (Negative) Urine Nitrate Negative (Negative) Urine Bilirubin Negative (Negative) Urine Urobilinogen 0.2 (<2.0) mg/dL Add Ur Microanalysis Reviewed Leukocyte Esterase Rfl 2+ H (Negative) VLADIMIR/UL Urine RBC >100 H (0-2) /hpf Urine WBC 21-50 H (0-3) /hpf Ur Squamous Epith Cells Moderate (Few) /hpf Urine Bacteria None seen /hpf Urine Casts 0-2 POC Urine HCG, Qual Positive (Negative) Discharge Plan Discharge Clinical Impression: Nausea & vomiting, Anxiety Patient Disposition: Home Condition: Stable Instructions: Antibiotic Form, Dehydration (ED), Acute Nausea and Vomiting (ED) Patient Language: Palauan Prescriptions: No Action ferrous sulfate 325 mg (65 mg iron) tablet 325 mg PO DAILY DHA 200 mg capsule 200 mg PO DAILY pantoprazole 40 mg tablet,delayed release (DR/EC) 40 mg PO QAM Qty: 90 3RF Follow-up/Referrals: Cristina Mcneil NP [Primary Care Provider, [facility]] Time of Disposition: 10:54
[2025-06-05 09:40] LABS: BEDSIDEPREGUCG Positive (Negative)
--- OUTSIDE RECORDS SUMMARY | 2025-06-05 09:42 | XMS_ITS | Clinical Summary ---
Author Organization [facility] Address Formerly [facility], [id number] [place] [address] Care Team Providers Care Warehouse Logistics Coordinator Name Role Phone Petrona West RESIDENTIAL BUILDER Primary Care Provider + Allergies No known [...] Sex Assigned at Female 11/18/2019 5:41 AM SUPERVISOR [employer] Legal Sex Female 10:23 AM CDT Gender Identity Female 11/18/2019 5:41 AM SUPERVISOR [employer] Sexual Orientation Straight 11/18/2019 5: 41 AM SUPERVISOR [employer] Last Filed Vital Signs Vital Sign Reading Time Taken Comments Blood Pressure 96/57 08/12/2022 8:43 AM SUPERVISOR [employer] Pulse 85 08/12/2022 8:43 AM SUPERVISOR [employer] Temperature 36 C (96.8 F) 08/12/2022 8:43 AM SUPERVISOR [employer] Respiratory Rate 18 08/12/2022 8:43 AM SUPERVISOR [employer] Oxygen Saturation 100% 08/12/2022 8:43 AM SUPERVISOR [employer] Inhaled Oxygen Concentration - - Weight 54.4 kg (120 lb) 08/04/2022 3:00 PM CDT Height 170.2 cm (5' 7) 08/04/2022 3:00 PM CDT Body Mass Index 18.79 08/04/2022 3:00 PM CDT Plan of Treatment Health Maintenance Due Date Last Done Comments Annual Physical 1996 Hepatitis C 2011 DTaP, Tdap and Td Vaccines ( 1 - Tdap) 2012 Hepatitis B Vaccines (1 of 3 - 19+ 3-dose series) 2012 HPV Vaccines (1 - 3-dose SCD M series) 2020 Cervical Cancer Screening Pa p with HPV Testing (Age 30 to 64) Every 5 Years 2023 COVID-19 Vaccine (3 - 2023-2 5 season) 2024 01/08/2021, 12/09/2020 Cervical Cancer Screening Pa p Smear (Age 30 to 64) Every 3 Years 04/27/2025 04/27/2022 Cervical Cancer Screening [facility] HPV 04/27/2025 Meningococcal B Vaccine Aged Out No l [...] 2:37 AM 05/07/2022 8:40 PM Care Teams Warehouse Logistics Coordinator Relationship Specialty Start Date End Date Petrona West FNP [address] [place] [phone] PCP - General NURSE PRACTITIONER 05/15/19
[2025-06-05] MEDS: SODIUM CHLORIDE 0.9% IV 1,000 ML 999 ML IV CONT (09:48)
[2025-06-05 10:06] LABS: Hematocrit 32.3 % (37.0-47.0); Hemoglobin 10.7 g/dL (12.0-15.0); Immature Granulocyte Percent A 0.9 % (0-0.5); Lymphocytes Absolute Auto 1.94 K/mm3 (0.9-3.2); Mean Corpuscular HGB Conc 33.1 g/dl (32-36); Mean Corpuscular Hemoglobin 30.2 pg (26-34); Mean Corpuscular Volume 91.2 fl (80-100); Nucleated Red Blood Cells Absolute Auto 0.000 K/mm3 (0.0-0.012); Nucleated Red Blood Cells Perc 0.0 % (0.0-0.2); Platelet Count Result 222 k/mm3 (150-375); Red Blood Count 3.54 M/mm3 (4.2-5.4); White Blood Count 10.0 K/mm3 (4.5-10.0)
[2025-06-05 10:22] LABS: Add Urine Microscopic? YES; Appearance Urine Cloudy (Clear); Glucose Urine UA Negative (Negative); Leukocyte Esterase Ur 2+ LEU/UL (Negative); Need Manual Microscopic Reviewed; Nitrate Urine Negative (Negative); Non Pathogenic Casts 0-2; Specific Grav Ur 1.014 (1.001-1.035)
[2025-06-05 10:24] LABS: Alanine Aminotransferase 20 U/L (6-35); Albumin Level 3.7 g/dL (3.5-5.1); Alkaline Phosphatase 166 U/L (38-126); Anion Gap 8 mmol/L (4-12); Aspartate Amino Transferase 35 U/L (14-36); Bilirubin,Total 0.5 mg/dL (0.2-1.3); Blood Urea Nitrogen 11 mg/dL (7-17); Calcium 8.9 mg/dL (8.4-10.2); Carbon Dioxide 24 mmol/L (22-30); Chloride 105 mmol/L (98-107); Estimated CRCL calculation 86 ml/min; Estimated Glomerular Filt Rate > 60; Glucose 97 mg/dL (65-110); Lipase 40 U/L (23-300); Potassium 3.7 mmol/L (3.4-5.0); Sodium 137 mmol/L (137-145); Total Protein 6.5 g/dL (6.3-8.2)
--- OUTSIDE RECORDS SUMMARY | 2025-06-05 10:31 | XMS_ITS | Clinical Summary ---
Author Organization [facility] Address [facility] [place] [address] Care Team Providers Care Handwriting Expert Name Role Phone Petrona West WORLD LANGUAGE TEACHER Primary Care Provider + Allergies No known [...] Sex Assigned at Female 11/18/2019 5:41 AM FAMILY NURSE Legal Sex Female 10:23 AM CDT Gender Identity Female 11/18/2019 5:41 AM FAMILY NURSE Sexual Orientation Straight 11/18/2019 5: 41 AM FAMILY NURSE Last Filed Vital Signs Vital Sign Reading Time Taken Comments Blood Pressure 96/57 08/12/2022 8:43 AM FAMILY NURSE Pulse 85 08/12/2022 8:43 AM FAMILY NURSE Temperature 36 C (96.8 F) 08/12/2022 8:43 AM FAMILY NURSE Respiratory Rate 18 08/12/2022 8:43 AM FAMILY NURSE Oxygen Saturation 100% 08/12/2022 8:43 AM FAMILY NURSE Inhaled Oxygen Concentration - - Weight 54.4 [...] 3 Years 04/27/2025 04/27/2022 Cervical Cancer Screening [facility] HPV 04/27/2025 Meningococcal B Vaccine Aged [...] 2:37 AM 05/07/2022 8:40 PM Care Teams Handwriting Expert Relationship Specialty Start Date End Date Petrona West FNP [address] [place] [phone] PCP - General NURSE PRACTITIONER 05/15/19
[2025-06-05 11:12] VITALS: BP 115/80; PULSE 74; RESP 14; O2SAT 100
== END 2025-06-05 11:12 | disposition home or self-care (01) ==
PROVIDERS: Emergency Provider Nurse Practitioner Family; PCP Nurse Practitioner Family
DX: R11.2 Nausea with vomiting, unspecified (principal); F41.9 Anxiety disorder, unspecified
CPT/HCPCS: 36415; 80053; 81001; 81025; 83690; 85025; 96361; 96374; 99284; J1790; J7030

== ENCOUNTER 2025-06-12 09:20 | Emergency (ER) | payer BC, SELFPAY ==
[2025-06-12 09:25] VITALS: BP 106/74; PULSE 97; RESP 18; TEMP 36.2; O2SAT 99
[2025-06-12 09:39] LABS: EDUAAPPEAR Cloudy; EDUABILI Negative (Negative); EDUABLOOD 3+ (Negative); EDUACOLOR1 Amber; EDUAGLUCOSE Negative (Negative); EDUAKETONE Negative (Negative); EDUALEUKO 3+ (Negative); EDUANITRATE Negative (Negative); EDUAPH 6.0; EDUAPROTEIN 1+ (Negative); EDUASPGRAVITY 1.025; EDUAUROBILI 0.2
--- NOTE | 2025-06-12 09:42 | ED_ITS ---
HPI - Female Genitourinary General Chief complaint: Urogenital-Female Stated complaint: UTI Time Seen by Provider: 06/12/25 09:30 Source: patient and RN notes reviewed Mode of arrival: ambulatory Limitations: no limitations History of Present Illness HPI Narrative: Patient presents today complaining of a 4 day history of dysuria with some mild pelvic pressure with voiding. Patient denies fever, nausea or vomiting, abnormal vaginal discharge, or any additional symptoms. She is 10 days , . Patient of Dr. Pichardo. She has not contacted him regarding her symptoms. She is . Related Data Home Medications ?Medication ?Instructions ?Recorded ?Confirmed ?Last Taken ?Type docosahexaenoic acid 200 mg 200 mg PO DAILY 10/11/24 0 06/01/25 06/01/25 History capsule ( DHA) ferrous sulfate 325 mg (65 mg 325 mg PO DAILY 10/11/24 06/01/25 06/01/25 History iron) tablet docusate sodium 100 mg capsule 100 mg PO DAILY 5 06/12/25 Unknown History (Dulcolax Stool Softener (docusate)) Allergies Allergy/AdvReac Type Severity Reaction Status Date / Time No Known Allergies Allergy Verified 06/12/25 09:31 [facility] Past Medical History Medical History IUP (intrauterine ), incidental ADHD Anxiety Insomnia Positive home test BMI < 18.5 Iron deficiency anemia Gastritis Encounter to establish care Left hip pain Anemia GERD (gastroesophageal reflux disease) IBS (irritable bowel syndrome) Family History Family History Other Alcohol abuse Mother Cancer Grandparent Depression Social History Social History Smoking status: Never smoker Second hand tobacco smoke exposure: No Alcohol intake: current Alcohol use details: Rarely maybe one time a year Substance use: never Substance use type: does not use Do You Feel Safe in your Home?: Yes Lack of Transportation: No Lack of Food: Never True Current Housing: I Have Housing Concerned About Future Housing: No Difficulty Paying Gas/Electric Bills: No Difficulty Paying for Meds: No Currently Unemployed: No Education: Master's Degree or Higher Difficulty w/ Childcare or Family Care: No Living arrangements: with family Occupation/Education: occupation Gender identity (if verbalized by the patient): Female Sexual Orientation (if Verbalized by the Patient): Straight or Heterosexual Spiritual care concerns: No Agree to blood products: Yes Comments At time of signature, I have reviewed and agree with nursing past medical, surgical, social and family history unless otherwise noted. Please see nursing chart for further information. There is no relevant family history pertinent to the presenting complaint Exam Narrative: GENERAL: Well-appearing, well-nourished, and in no acute distress. HEAD: Normocephalic, atraumatic. EYES: EOMI. No redness or drainage. Conjunctivae normal. ENT: Mucous membranes pink and moist. NECK: Normal AROM. CHEST: No respiratory distress. Clear to auscultation. HEART: Regular rate and rhythm. No murmur appreciated. Normal peripheral pulses. ABDOMEN: Soft, nontender, nondistended, normal active bowel sounds. -CVAT EXTREMITIES: Normal range of motion. No edema. SKIN: Warm, dry, no rash. Capillary refill normal. NEURO: No focal deficits. Alert and oriented x3. Gait steady. PSYCH: Normal affect. No signs of depression or anxiety. Course Course Level of Care: Express Care Visit Vital Signs Vital signs: Vital Signs Temperature 97.1 F L 06/12/25 09:25 Pulse Rate 97 06/12/25 09:25 Respiratory Rate 18 06/12/25 09:25 Blood Pressure 106/74 06/12/25 09:25 Pulse Oximetry 99 06/12/25 09:25 Oxygen Delivery Room Air 06/12/25 09:25 Temperature 97.1 F L 06/12/25 09:25 Pulse Rate 97 06/12/25 09:25 Respiratory Rate 18 06/12/25 09:25 Blood Pressure 106/74 06/12/25 09:25 Pulse Oximetry 99 06/12/25 09:25 Oxygen Delivery Room Air 06/12/25 09:25 Reviewed MDM - Female Genitourinary MDM Narrative Medical decision making narrative: 29-year-old female patient, 10 days , presents today with a 4 day history of dysuria and lower pelvic pressure with voiding. Negative exam. Urinalysis shows 1+ protein, 3+ blood, 3+ leukocytes. Patient will be treated with a course of cephalexin with culture pending. Patient has been instructed to call her OB GYNs office and informed them of her diagnosis and treatment. She is currently . Strict ED precautions and symptoms for which she would need to check in with her OB. Patient agrees with plan. VSS. Differential Diagnosis Differential diagnosis: Likely urinary tract infection, vaginitis and other (Endometritis) Lab Data Attestation: I reviewed the patient's lab results. Labs: Lab Results 06/12/25 Range/Units 09:32 POC Urine Color Janelle POC Urine Clarity Cloudy POC Urine pH 6.0 POC Ur Specif [place] 1.025 POC Urine Protein 1+ (Negative) POC Ur Glucose (UA) Negative (Negative) POC Urine Ketones Negative (Negative) POC Urine Blood 3+ (Negative) POC Urine Nitrite Negative (Negative) POC Urine Bilirubin Negative (Negative) POC Urine Urobilinogen 0.2 POC U Leukocyte Esteras 3+ (Negative) Critical Care Time Critical Care Time Critical Care Time: No Discharge Plan Discharge Clinical Impression: Urinary tract infection Qualifiers: Urinary tract infection type: acute cystitis Hematuria presence: with hematuria Qualified Code(s): N30.01 - Acute cystitis with hematuria Patient Disposition: Home Condition: Stable Instructions: Antibiotic Form, Urinary Tract Infection in Women (DC) Additional Instructions: Your urine shows infection today. Take Keflex as prescribed until gone. Your urine will be sent of for a culture to identify what type of bacteria is causing your infection. If the culture shows that your medication will not get rid of your infection, you will be notified and a new antibiotic will be called in for you. If your symptoms worsen to include fever, sweats, chills, nausea, vomiting, severe abdominal or back pain, or abnormal vaginal discharge, please call your OBGYN or go to the ER for further evaluation. Patient Language: Sierra Leonean Prescriptions: New cephalexin 500 mg capsule 500 mg PO BID 7 Days Qty: 14 0RF No Action docusate sodium [Dulcolax Stool Softener (dss)] 100 mg capsule 100 mg PO DAILY ferrous sulfate 325 mg (65 mg iron) tablet 325 mg PO DAILY DHA 200 mg capsule 200 mg PO DAILY pantoprazole 40 mg tablet,delayed release (DR/EC) 40 mg PO QAM Qty: 90 3RF Follow-up/Referrals: Zurdo Pichardo MD [Physician, ACCOUNTING SYSTEM EXPERT] Cristina Mcneil NP [Primary Care Provider, Family Practice] Time of Disposition: 09:44
--- OUTSIDE RECORDS SUMMARY | 2025-06-12 10:00 | XMS_ITS | Clinical Summary ---
Author Organization [facility] Address [facility] [place] [address] Care Team Providers Care Drip Box Tender Name Role Phone Petrona West CAREER SERVICES DIRECTOR Primary Care Provider + Allergies No known [...] Sex Assigned at Female 11/18/2019 5:41 AM COMMUTER [employer]OT Legal Sex Female 10:23 AM CDT Gender Identity Female 11/18/2019 5:41 AM COMMUTER PILOT Sexual Orientation Straight 11/18/2019 5: 41 AM COMMUTER PILOT Last Filed Vital Signs Vital Sign Reading Time Taken Comments Blood Pressure 96/57 08/12/2022 8:43 AM COMMUTER PILOT Pulse 85 08/12/2022 8:43 AM COMMUTER PILOT Temperature 36 C (96.8 F) 08/12/2022 8:43 AM COMMUTER PILOT Respiratory Rate 18 08/12/2022 8:43 AM COMMUTER PILOT Oxygen Saturation 100% 08/12/2022 8:43 AM COMMUTER PILOT Inhaled Oxygen Concentration - - Weight 54.4 [...] 30 to 64) Every 5 Years 2023 Cervical Cancer Screening Pa p Smear (Age 30 to 64) Every 3 Years 04/27/2025 04/27/2022 Cervical Cancer Screening wi th HPV 04/27/2025 COVID-19 Vaccine (3 - 2024-2 6 season) 2025 01/08/2021, 12/09/2020 Meningococcal B Vaccine Aged Out No l [...] 2:37 AM 05/07/2022 8:40 PM Care Teams Drip Box Tender Relationship Specialty Start Date End Date Petrona West FNP [address] [place] [phone] PCP - General NURSE PRACTITIONER 05/15/19
== END 2025-06-12 09:47 | disposition home or self-care (01) ==
PROVIDERS: Emergency Provider Nurse Practitioner; PCP Nurse Practitioner Family
DX: N30.01 Acute cystitis with hematuria (principal); O86.22 Infection of bladder following delivery; O90.81 Anemia of the puerperium; D50.9 Iron deficiency anemia, unspecified; O99.63 Diseases of the digestive system complicating the puerperium; K21.9 Gastro-esophageal reflux disease without esophagitis
CPT/HCPCS: 81003; 87077; 87086; 87186; 99213; G0463

== ENCOUNTER 2025-07-20 16:37 | Emergency (ER) | payer BC, SELFPAY ==
--- OUTSIDE RECORDS SUMMARY | 2025-07-20 16:39 | XMS_ITS | Clinical Summary ---
Author Organization [facility] Address [facility] [place] [address] Care Team Providers Care Optometry Assistant Name Role Phone Petrona West BANKRUPTCY PROCESSOR Primary Care Provider + Allergies No known [...] Sex Assigned at Female 11/18/2019 5:41 AM MAKE UP GIRL Legal Sex Female 10:23 AM CDT Gender Identity Female 11/18/2019 5:41 AM MAKE UP GIRL Sexual Orientation Straight 11/18/2019 5: 41 AM MAKE UP GIRL Last Filed Vital Signs Vital Sign Reading Time Taken Comments Blood Pressure 96/57 08/12/2022 8:43 AM MAKE UP GIRL Pulse 85 08/12/2022 8:43 AM MAKE UP GIRL Temperature 36 C (96.8 F) 08/12/2022 8:43 AM MAKE UP GIRL Respiratory Rate 18 08/12/2022 8:43 AM MAKE UP GIRL Oxygen Saturation 100% 08/12/2022 8:43 AM MAKE UP GIRL Inhaled Oxygen Concentration - - Weight 54.4 [...] - 2024-2 6 season) 2025 01/08/2021, 12/09/2020 Influenza Adult (#1) 2025 Hepatitis A Vaccines Aged Out No long er eligible based on patient's age to complete [...] 2:37 AM 05/07/2022 8:40 PM Care Teams Optometry Assistant Relationship Specialty Start Date End Date Petrona West FNP [address] [place] [phone] PCP - General NURSE PRACTITIONER 05/15/19
--- OUTSIDE RECORDS SUMMARY | 2025-07-20 16:41 | XMS_ITS | Data Portability ---
Author Organization [facility] Address [address] [place] [address] [place] [address] Care Team Providers Care Conditioning Room Worker Name Role Phone JYOTI MCKINNON Primary Care Provider [phone] Assessment Encounter Date Assessment Date Assessment LastModified by Organization Details LastModified Time 05/22/2025 05/22/2025 Patient is ___weeks . Discussed plan. [email or web address] Not available 05/22/2025 15:06:03 Plan of Treatment Reminders Order Date Submit Date Provider Last Modified By Organization Details Last Modified Time Details Appointments SURG Salpingec [email or web address] 2024 01:30P Jil PICHARDO MD Not available Not available Not available SURG POST OP 2024 08:30A Jil PICHARDO MD Not available Not available Not available [facility] 2024 10:30A NEL Irby Not available Not available Not available Lab None recorded. Referral None recorded. Procedures None recorded. Surgeries salpingec kashif, laparosco pic (SURG) 2024 025 [email or web address] [facility], [address], [place], [address], 06/11/2025 11:25:52 Imaging US, obstetric , follow-up 2024 025 [email or web address], [address], [place], [address], 05/13/2025 13:52:50 Medication Orders sertralin e 50 mg tablet 2024 025 GERALDINE [facility], [address] [facility], [place], [address], 06/09/2025 11:40:19 Patient TargetsNo targets recorded. Patient InstructionsNo instructions recorded. Reason for Referral None Reported. Results Created Date Observation Date Name Description Value Unit Range Abnormal Flag Note LastModifiedBy Organization Detail LastModifiedTime 05/16/2005/16/2025 CULTU RE: GROUP B STREP SCREE N, REFLE X SUSCE PTIBI LITY result report SEE RESULT S BELOW Test: Cultu re: Group B Strep , Refle x Susce ptibi lity ([facility]/ [facility] ) Speci men Sourc e: Vagin a/Rec carmela Speci men Type: Vagin al/Re ctal Speci men Date: 2024 1305 Resul t Date: 2024 1415 Resul t Statu s: Final resul t Abnor mal: No Resul ting Lab: [facility] [address] [facility] [id number] Tel: CULTU RE ----- ----- ----- --- No Group B strep isola vlad at 2 days (mariely ctive broth enhan cemen t) Not Available [facility] (Lab) [address] [facility], [place], [address], 05/19/2025 15:19:04 04/17/2004/17/2025 US, obste tric, follo w-up No observ ation record ed. [facility] [address], [place], [address], 04/17/2025 16:49:00 04/17/2004/17/2025 US, obste tric, follo w-up No observ ation record ed. [email or web address] [facility] [address], [place], [address], 04/18/2025 12:24:34 05/13/20 25 05/13/2025 US, obste tric, follo w-up No observ ation record ed. [email or web address] [address], [place], [address], 05/13/2025 13:48:32 05/13/20 25 05/13/2025 US, obste tric, follo w-up No observ ation record ed. [facility] [address], [place], [address], 05/17/2025 11:24:48 Result Notes None recorded. Problems Name Problem SNOMED Code Status Onset Date Resolution Date Notes Provider Name and Address Organization Details Recorded Time Acid reflux 817310707 Completed protonix Petra Nakia [facility] 5 11:18:19 Female steriliz ation Completed planning for interval tubal ligation 6 weeks PP Petra Yee [facility] 5 11:18:19 Pregnanc y 85872224 Completed 202406/09/2025 Yesi Mario [facility] 5 11:09:28 Bilobate placenta 0019215029 Completed 2024 [facility] 11:18:19 Problem Notes None recorded. Procedures Surgical History Date Name Laterality Status Provider Name and Address Organization Details Recorded Time 11/08/19 25 Date of Last Pap Smear completed Yesi Mario [facility] 12/13/2024 10:12:36 08/12/20 22 completed Yesi Mario [facility] 05/12/2023 13:04:36 08/02/20 22 Date of Last Colonoscopy completed Yesi Mario [facility] 05/12/2023 13:06:10 colonoscopy completed NEL Lang- [address], [place], [address], [facility] 05/12/2023 13:17:36 endoscopy completed Melony Valladares [facility] [address], [place], [address], [facility] 05/12/2023 13:17:54 Imaging Results None recorded. Procedure Notes None recorded. Medical Equipment None [...] completed Not Available Not Available Not Available cephalexin 500 mg capsule TAKE 1 CAPSULE BY MOUTH TWICE DAILY FOR 7 DAYS 07/03 completed Not Available Not Available Not Available pantoprazol e 40 mg tablet,matthew yed release 11/08 completed Not Available Not Available Not Available ondansetron 4 mg disintegrat ing tablet DISSOLVE ONE TABLET ON THE TONGUE EVERY 8 HOURS NEEDED FOR NAUSEA 11/08 completed Not Available Not Available Not Available sertraline 50 mg tablet Take 1 tablet every day by oral route. 2024 active Not Available Not Available Not Avai lable amoxicillin 875 mg-potassiu m clavulanate 125 mg tablet TAKE 1 TABLET BY MOUTH TWICE DAILY 07/03 completed Not Available Not Available Not Available Sprintec (28) 0.25 mg-0.035 mg tablet Take 1 tablet every day by oral route. 05/12 completed Not Available Not Available Not Available iron active Not Available Not Availa ble Not Available active Not Available Not Avai lable Not Available Vitals Date Recorded Body weight Body mass index (BMI) Body height Systolic And Diastolic Provider Name and Address Organization Details Last Updated DateTime 05/16/2025 13425.747 06 g 21.6 kg/m2 170.18 cm 104/73 mm[Hg] Lynne Webster [facility] 05/16/2025 12:36:03 Date Recorded Body height Body mass index (BMI) Body weight Systolic And Diastolic Provider Name and Address Organization Details Last Updated DateTime 05/22/2025 170.18 cm 22.6 kg/m2 81147.3 g 112/77 mm[Hg] Yesi [facility] 05/22/2025 15:06:31 Date Recorded Body height Body mass index (BMI) Body weight Systolic And Diastolic Provider Name and Address Organization Details Last Updated DateTime 06/09/2025 170.18 cm 19.3 kg/m2 29932.86 g 103/73 mm[Hg] Yesi [facility] 06/09/2025 11:07:33 Date Recorded Body height Body mass index (BMI) Body weight Systolic And Diastolic Provider Name and Address Organization Details Last Updated DateTime 07/03/2025 170.18 cm 19.6 kg/m2 94889.05 g 100/67 mm[Hg] [facility] 07/03/2025 12:32:05 Social History Question Answer Notes LastModified by Organizat ion Details LastModified Time Tobacco Smoking Status Never Smoker Sugey Valentinshara barnhart [facility] 10/20/2023 10:49:15 Do You Have An Advance Directive? No Information n ot available 04/27/2022 How Many Years Have You Consumed Alcohol? 7 Information not available 04/27/2022 Are You Blind Or Do You Have Difficulty Seeing? No Information n ot available 04/27/2022 What Is Your Level Of Caffeine Consumption? None Information not available 04/27/2022 How Much Tobacco Do You Chew? None Information not available 04/27/2022 In The 14 Days Before Symptom Onset, Have You Had Close Contact With A Laboratory-confirm ed COVID-19 While That Case Was Ill? No Information n ot available 04/27/2022 In The 14 Days Before [...] Of Diet Are You Following? REGULAR Information n ot available 04/27/2022 What Is The Highest Grade Or Level Of School You Have Completed Or The Highest Degree You Have Received? [id number] Information not available 04/27/2022 Are There Any [...] IV Drugs? No Information not available 04/27/2022 Do You Have Difficulty Walking Or Climbing Stairs? No [email or web address] Information not available 10/20/2023 Sex: Unknown Functional Status Question Answer Note LastModified by Organizat ion Details LastModified Time Do you use any illicit or recreational drugs? No Information not available 04/27/2022 What is your level of alcohol consumption? Occasional Information not available 04/27/2022 Are you able to walk independently without assistance or assistive devices? YESWOREST Information not available 04/27/2022 Are you able to care for yourself independently? 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 No [email or web address] Information not available 10/20/2023 What is your exercise level? None Information not available 04/27/2022 Mental Status Question Answer Note LastModified by Organization D etails LastModified Time Do you feel stressed (tense, restless, nervous, or anxious, or unable to sleep at night)? [id number] Information not available 04/27/2022 Family History Nothing Reported. Medical History Condition Response Allergies (Food, seasonal, environmental ) N Other N Breast Cancer N Drug/Latex Allergies/Reactions N Blood Transfusion N Dermatologic Disorders N Lung Disease N Defects or Inherited Disease N Breast Problem N Gestational Diabetes N Hematologic disorders N Anesthesia Complications N History of STI N Deep Vein Thrombosis N Polycystic ovary syndrome N Anxiety Disorder Y Autoimmune disease N Arthritis N Infertility N [...] of Flow (days) 4 Current Control Method Breastfeedi ng/TAYLOR Date of control 03/14/2022 Are cycles usually normal Y Date of Last Colonoscopy 08/02/2022 Frequency of Cycle (Q days) 28 Sexually Active? Y BCPs Menses Monthly Y Age of first menstrual cycle 10 Date of Last Pap Smear 11/08/2024 Sexual Problems? N LMP Definite 08/12/2022 N Obstetrics History GPAL:G 1 P 1 0 0 1 Type Value Full Term 1 Living 1 Total 1 Past Encounters Encounter ID Performer Location Encounter Start Date Encounter Closed Date Diagnosis/Indication Diagnosis SNOMED-CT Code Diagnosis ICD10 Code Diagnosis IMO Codes Diagnosis Note [id number] Shira MatuteNEL [facility] [address] [address] 04/27/2022 15:35:30 04/27/2022 16:49:33 Gynecologic examination 25852093 Z01.419 Take Calcium with Vitamin D 1200mg [...] this method.She denies hx of DVT/PE, HTN, stroke/UT, cancer, liver disease, or migraine with auraShe is non-smoker States her mother had a DVT on the nuvaring, was not diagnosed with any genetic condition or clotting conditionR /B of OCP discussed and accepted by patientNo hx of abnormal papsPap done todaySTI testing declinedge netic testing, discussedR TC in 1 year or sooner if needed [facility] ion care management 144049467 Z30.9 [id number] Melony Valladares [facility] [address] [address] 05/12/2023 12:49:14 05/12/2023 13:34:27 Gynecologic examination 36352717 Z01.419 Take Calcium with Vitamin D 1200mg [...] kylee test after late by 1wk LMP. [id number] Melony Valladares [facility] [address] [address] 10/20/2023 10:47:46 10/20/2023 11:25:25 Abnormal uterine bleeding 5542063486 9100 N93.9 The patient and I discussed [...] face to face. 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 All questions were answered to patient satisfacti on. Time spent in visit is a total of 25mins with at least 50% of visit consisting of counseling and review of plan of care. Reproducti ve care management 799045216 Z31.9 Trying to achieve pregnancyH as almost been a year and not reached her goalReview ed her lab work today which appears wnlOffered referral to [facility] which she will consider.S bekases PCP is going to order sperm count testing for spouse.Artur singer reach out if wants recent labs sent to a fertility clinic. [id number] Zurdo Pichardo MD [facility] [address],[place] [address] 11/08/2024 13:46:25 11/08/2024 14:27:45 [id number] MD Luis Laird [address] [address] 11/08/2024 13:47:02 11/08/2024 15:09:38 Amenorrhea 68136184 N91.2 this patient is a 29-year-ol d [...] begin routine care at her next visit. [id number] MD Luis Laird [address],[place] [address] 12/06/2024 12:34:20 12/06/2024 14:21:34 screening 389406186 Z36.82 Z3A.12 [id number] Zurdo Pichardo MD [facility] [address],[place] [address] 12/13/2024 10:01:44 12/16/2024 05:59:05 Routine care 413015186 Z34.91 [id number] Zurdo Pichardo MD [facility] [address],[place] [address] 12/24/2024 09:38:04 12/24/2024 10:27:59 Routine care 481223458 Z34.91 [id number] MD Luis Laird [address] [address] 12/25/2024 14:48:52 12/25/2024 15:57:21 Spotting per vagina in 649194070 O26.852 Z3A.15 [id number] MD Luis Laird [address],[place] [address] 01/24/2025 09:58:44 01/24/2025 11:43:20 screening for malformation 256682091 Z36.3 Z3A.19 6346720767 [id number] MD Luis Laird [address],[place] [address] 01/24/2025 09:59:27 01/24/2025 11:52:54 Second trimester 97152851 Z34.02 [id number] MD Luis Laird [address],[place] [address] 02/21/2025 16:02:40 02/24/2025 07:34:23 Second trimester 50385731 Z34.02 [id number] MD Luis Laird [address],[place] [address] 02/25/2025 15:29:16 02/25/2025 16:16:15 Anomaly of placenta 80958340 O43.102 Z3A.24 [id number] MD Luis Laird [address],[place] [address] 03/20/2025 17:15:02 03/21/2025 05:19:29 Third trimester 95102701 Z34.03 [id number] MD Luis Laird [address],[place] [address] 03/21/2025 16:24:57 03/21/2025 16:56:06 Bilobate placenta 9494894435 O43.199 Z3A.27 7588 [id number] PRIMO SHEEHAN MD [facility] [address],[place] [address] 04/02/2025 14:23:52 04/02/2025 15:09:59 Female sterilization 47411357 Z30.2 Gestation period, 29 weeks 58519720 Z3A.29 7701279 [id number] MD Luis Laird [address],[place] [address] 04/17/2025 10:00:55 04/17/2025 10:41:52 Placental condition affecting management of mother 273624436 O43.93 Z3A.31 94463329 [id number] MD Luis Laird [address],[place] [address] 04/18/2025 11:45:40 04/18/2025 12:39:22 Third trimester 33701790 Z34.03 [id number] MD Luis Laird [address],[place] [address] 05/02/2025 14:09:12 05/02/2025 15:05:56 Third trimester 68952500 Z34.03 [id number] MD Luis GALARZA [address],[place] [address] 05/13/2025 09:31:34 05/13/2025 10:10:47 Bilobate placenta 9777756208 O43.193 Z3A.35 6226141 [id number] MD Luis GALARZA [address],[place] [address] 05/16/2025 12:28:08 05/16/2025 13:20:34 Third trimester 71035158 Z34.03 [id number] MD Luis Laird [address],[place] [address] 05/22/2025 14:47:14 05/22/2025 15:29:11 Third trimester 37201044 Z34.03 [id number] MD Luis Laird [address],[place] [address] 06/09/2025 10:29:42 06/09/2025 11:46:19 Unwanted fertility 046507195 Z30.09 [id number] [facility] 18332370 F41.9 [id number] 29-year-ol d female experienci ng marked anxiety. She has 1-2 weeks from a vaginal . She is physically otherwise doing well. Reported dramatic mood change after the of the baby. Increasing anxiety, worry. 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 She we would like to start medication s. We agreed to that. She will start 50 mg of sertraline . Talked about side effects, risks, benefits, and alternativ es. She was given instructio ns and precaution s. [id number] Zurdo Pichardo MD [facility] [address] [address] 07/03/2025 11:40:26 07/03/2025 12:41:38 state 06350885 Z39.2 [id number] This patient is a 34-year-ol d female who presents for care. Her baby is bottle/franklin ast feeding. Her baby is doing very well. Her mood is good. She has not had intercours e. Her bleeding is resolved. contracept ion - Salpingect max. To return for well-woman exam in 2-3 months. Health Concerns Section Related Observation LastModified by Organization Detai ls LastModified Time None Recorded Concern Status LastModified by Organization Details LastModified Time None Recorded Advance Directives Directive N: Payers Insurance Date Sequence Insurance Name Policy Number Policy Del Cid Covered Member ID Del Cid Member ID Guarantor Name 07/20/2025 1 [place] [id number] Samm Palacios [id number] Merlyn Palacios 05/02/2025 1 [employer] (POS II) [id number] Merlyn Palacios [id number] Merlyn Palacios Notes Date Note Type Note Provider Name and Address Organization Details Recorded Time 05/16/2025 text/html Generic HPI TemplateReported by Patient PRIMO SHEEHAN MD [address], [place], [address], [facility] 05/16/2025 13:09:23 05/22/2025 text/html Generic HPI TemplateReported by Patient Zurdo Pichardo MD [address], [place], [address], [facility] 05/22/2025 15:24:10 06/09/2025 text/html 29-year-old female experiencing marked anxiety. She has 1-2 weeks from a vaginal . She is physically otherwise doing well. Reported dramatic mood change after the of the baby. Increasing anxiety, worry. 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 She we would like to start medications. We agreed to that. She will start 50 mg of sertraline. Talked about side effects, risks, benefits, and alternatives. She was given instructions and precautions. Zurdo Pichardo MD [address], [place], [address], [facility] 06/09/2025 11:44:30 07/03/2025 text/html VisitReported by Patient This patient is a 34-year-old female who presents for care. Her baby is bottle/breast feeding. Her baby is doing very well. Her mood is good. She has not had intercourse. Her bleeding is resolved. contraception - Salpingectomy. To return for well-woman exam in 2-3 months. Zurdo Pichardo MD [address], [place], [address], [facility] 07/03/2025 12:40:24 OBGyn Episode Ob Episode Information Episode Created Date Number of Fetuses Patient Bloodtype Patient rh Status Prepregnancy Weight lbs Domestic Partner Domestic Partner Phone Father Name Promotional Marketing Agent Status 12/14/19 25 1 O Positive 109 Samm CLOSED Fetus Data First Name Last Name Admitted to NICU Weight (g) Sex Living Outcome Pediatric Complications Fetus ID Race Codes Race Delivery Type Becket t false 3146.79 45 M true Full Term [id number] Vaginal Delivery Problems Problem Notes Problem Name Start Date End Date Resolution Snomed Code Not e Female sterilization 27782009 planning for interval tubal ligation 6 weeks PP Acid reflux 788591256 protonix Bilobate placenta 01/24/2025 0542511889 serial growth US Ke Calculation Initial Ke Date Initial Exam Date Initial Exam Provider Initial Ultrasound Date Last Menstrual Period Date Ultra Sound Weeks Gestation 12/13/2024 11/08/2024 09/07/2024 9 Eighteen To Twenty Week Ke Update Ultra Sound Date Fundal Height At Umbil Quickening Date Ultra Sound Latest Weeks Gestation Final Ke Confirmed By Final Ke Confirmed Date Final Ke Date Ultra Sound Latest Days Gestation 01/25/20 25 20 [email or web address] 12/13/2024 06/14/20 25 1 Pre-cara Flowsheet Flowsheet Date 12/13/2024 Machado Score Blood Edema Fundus Height Fundus Units Glucose Ketones Leukocytes Nitrite Labor Signs Protein Cervic Dilation Cervic Effacement Cervic Station Type Weight in lbs Pre/Post Dialysis Refused Weight 110.648504563887 BP Diastolic BP Location Tested BP Systolic [...] Type Weight in lbs Pre/Post Dialysis Refused 110.667057574825 BP Diastolic BP Location Tested BP Systolic [...] Fetus Heart Rate Present Fetus Movement Comments Flowsheet Date 01/24/2025 Machado Score Blood Edema Fundus Height Fundus Units Glucose Ketones Leukocytes Nitrite Labor Signs Protein Cervic Dilation Cervic Effacement Cervic Station Type Weight in lbs Pre/Post Dialysis Refused BP Diastolic BP Location Tested BP Systolic BP Type Fetus Heart Rate Present Fetus Movement Comments Flowsheet Date 01/24/2025 Machado Score Blood Edema Fundus Height Fundus Units Glucose Ketones Leukocytes Nitrite Labor Signs Protein Cervic Dilation Cervic Effacement Cervic Station Type Weight in lbs Pre/Post Dialysis Refused Weight 116.488253099451 BP Diastolic BP Location Tested BP Systolic BP Type 70 L arm 100 sitting Fetus Heart Rate Present A 144 Fetus Movement A Yes Comments no complaints, no problems, routine care, no contractions, no vaginal bleeding, no loss of fluid, no cramping discussed accessory lobe Flowsheet Date 02/21/2025 Machado Score Blood Edema Fundus Height Fundus Units Glucose Ketones Leukocytes Nitrite Labor Signs Protein Cervic Dilation Cervic Effacement Cervic Station Type Weight in lbs Pre/Post Dialysis Refused 124.859285784596 BP Diastolic BP Location Tested BP Systolic BP Type 64 L arm 100 sitting Fetus Heart Rate Present A 145 Present Fetus Movement A Yes Comments no complaints, no problems, routine care, no contractions, no vaginal bleeding, no loss of fluid, no cramping Flowsheet Date 02/25/2025 Machado Score Blood Edema Fundus Height Fundus Units Glucose Ketones Leukocytes Nitrite Labor Signs Protein Cervic Dilation Cervic Effacement Cervic Station Type Weight in lbs Pre/Post Dialysis Refused BP Diastolic BP Location Tested BP Systolic BP Type Fetus Heart Rate Present Fetus Movement Comments Flowsheet Date 03/20/2025 Machado Score Blood Edema Fundus Height Fundus Units Glucose Ketones Leukocytes Nitrite Labor Signs Protein Cervic Dilation Cervic Effacement Cervic Station Type Weight in lbs Pre/Post Dialysis Refused Weight 129.29248294983 BP Diastolic BP Location Tested BP Systolic BP Type 65 L arm 99 sitting Fetus Heart Rate Present A 144 Present Fetus Movement A Yes Comments no complaints, no problems, routine care, no contractions, no vaginal bleeding, no loss of fluid, no cramping Flowsheet Date 03/21/2025 Machado Score Blood Edema Fundus Height Fundus Units Glucose Ketones Leukocytes Nitrite Labor Signs Protein Cervic Dilation Cervic Effacement Cervic Station Type Weight in lbs Pre/Post Dialysis Refused BP Diastolic BP Location Tested BP Systolic BP Type Fetus Heart Rate Present Fetus Movement Comments Flowsheet Date 04/02/2025 Machado Score Blood Edema Fundus Height Fundus Units Glucose Ketones Leukocytes Nitrite Labor Signs Protein Cervic Dilation Cervic Effacement Cervic Station neg trace Type Weight in lbs Pre/Post Dialysis Refused Weight 131.374310474847 Weight 131.218421090539 BP Diastolic BP Location Tested BP Systolic BP Type 65 L arm 100 sitting Fetus Heart Rate Present A 155 Fetus Movement A Yes Comments Good movement. No cram ping or bleeding. Discussed tdap and RSV vaccine. Passed 3h GTT. Would like tubal at 6 weeks pp, discussed ok to breastfeed after anesthesia. RTC 2 weeks. Flowsheet Date 04/17/2025 Machado Score Blood Edema Fundus Height Fundus Units Glucose Ketones Leukocytes Nitrite Labor Signs Protein Cervic Dilation Cervic Effacement Cervic Station Type Weight in lbs Pre/Post Dialysis Refused BP Diastolic BP Location Tested BP Systolic BP Type Fetus Heart Rate Present Fetus Movement Comments Flowsheet Date 04/18/2025 Machado Score Blood Edema Fundus Height Fundus Units Glucose Ketones Leukocytes Nitrite Labor Signs Protein Cervic Dilation Cervic Effacement Cervic Station Type Weight in lbs Pre/Post Dialysis Refused [id number] BP Diastolic BP Location Tested BP Systolic BP Type 69 L arm 102 sitting Fetus Heart Rate Present A 148 Present Fetus Movement A Yes Comments no complaints, no problems, routine care, no contractions, no vaginal bleeding, no loss of fluid, no cramping Flowsheet Date 05/02/2025 Machado Score Blood Edema Fundus Height Fundus Units Glucose Ketones Leukocytes Nitrite Labor Signs Protein Cervic Dilation Cervic Effacement Cervic Station Type Weight in lbs Pre/Post Dialysis Refused [id number] BP Diastolic BP Location Tested BP Systolic BP Type 72 L arm 109 sitting Fetus Heart Rate Present A 144 Present Fetus Movement A Yes Comments no complaints, no problems, routine care, no contractions, no vaginal bleeding, no loss of fluid, no cramping. Has completed vaccines Flowsheet Date 05/13/2025 Machado Score Blood Edema Fundus Height Fundus Units Glucose Ketones Leukocytes Nitrite Labor Signs Protein Cervic Dilation Cervic Effacement Cervic Station Type Weight in lbs Pre/Post Dialysis Refused BP Diastolic BP Location Tested BP Systolic BP Type Fetus Heart Rate Present Fetus Movement Comments Flowsheet Date 05/16/2025 Machado Score Blood Edema Fundus Height Fundus Units Glucose Ketones Leukocytes Nitrite Labor Signs Protein Cervic Dilation Cervic Effacement Cervic Station 1cm 50% -3 Type Weight in lbs Pre/Post Dialysis Refused [id number] BP Diastolic BP Location Tested BP Systolic BP Type 73 L arm 104 sitting Fetus Heart Rate Present A 150 Fetus Movement A Yes Comments Good movement. Irregul ar BH contractions. No bleeding. Preadmission scheduled. SVE closed, considering EIL after due date. Will discuss with Dr. Pichardo. GBS collected. Labor precautions reviewed. RTC 1 week. Flowsheet Date 05/22/2025 Machado Score Blood Edema Fundus Height Fundus Units Glucose Ketones Leukocytes Nitrite Labor Signs Protein Cervic Dilation Cervic Effacement Cervic Station Type Weight in lbs Pre/Post Dialysis Refused Weight 144.50880679329 BP Diastolic BP Location Tested BP Systolic BP Type 77 L arm 112 sitting Fetus Heart Rate Present A 148 Present Fetus Movement A Yes Comments no complaints, no problems, routine care, no contractions, no vaginal bleeding, no loss of fluid, no cramping Flowsheet Date 06/09/2025 Machado Score Blood Edema Fundus Height Fundus Units Glucose Ketones Leukocytes Nitrite Labor Signs Protein Cervic Dilation Cervic Effacement Cervic Station Type Weight in lbs Pre/Post Dialysis Refused Weight 123.342389597092 BP Diastolic BP Location Tested BP Systolic BP Type 73 L arm 103 sitting Fetus Heart Rate Present Fetus Movement Comments Menstrual History Last Menstrual Date Menses Monthly On Bcp Conception Prior Menses Frequency Hcg Plus Date Menarche Onset Age 1209/07/2024 true 28 Delivery Information Delivery Date Delivery Type Labor Anesthesia Weeks Gestation Incision Type Labor Labor Length Hrs Delivered By Post Complications Tubal Sterilization Discharge Date Comments 5 38.2 false None false Discharge Information Feeding Method Contraceptive Method Maternal HG B and HCT Levels
[2025-07-20 16:43] VITALS: BP 109/61; PULSE 85; RESP 18; TEMP 36.1; O2SAT 99
--- NOTE | 2025-07-20 16:59 | ED.FEMALEGU ---
HPI - Female Genitourinary General Chief complaint: Urogenital-Female Stated complaint: yeast infection patient presents to the [facility] with complaints of vaginal irritation, minimal vaginal discharge, vaginal odor that began about 5 days ago. Patient reports completing 2nd round of antibiotics for UTI 7 days ago. Patient does also report being 7 weeks , noted vaginal delivery with a small second-degree laceration. Noted overall does not have any pain, swelling, redness to the area denies any further UTI symptoms. Patient reports having yeast infections in the past the irritation is similar to yeast infection but never had anything with the odor like this. No other changes to lotions, ointments, or body washes Related Data Home Medications ?Medication ?Instructions ?Recorded ?Confirmed ?Last Taken ?Type docosahexaenoic acid 200 mg 200 mg PO DAILY 10/11/24 07/14/25 07/14/25 History capsule ( DHA) ferrous sulfate 325 mg (65 mg 325 mg PO DAILY 10/11/24 07/20/25 07/14/25 History iron) tablet Allergies Allergy/AdvReac Type Severity Reaction Status Date / Time No Known Allergies Allergy Verified 07/14/25 17:09 Review of Systems Constitutional: Constitutional: Reports as per HPI, Denies chills and Denies fatigue Eyes: Eyes: Reports no additional eye complaints Cardiovascular: Cardiovascular: Reports no additional cardiovascular complaints Respiratory: Respiratory: Reports no additional respiratory complaints Gastrointestinal: Gastrointestinal: Reports as per HPI and Denies abdominal pain Genitourinary: Genitourinary: Reports as per HPI, Denies abnormal vaginal bleeding, Denies hematuria, Denies nocturia, Denies genital lesions, Denies dysuria, Denies pelvic pain, Denies flank pain, Denies urinary incontinence and Reports vaginal discharge Comments: vaginal odor, vaginal irritation Musculoskeletal: Musculoskeletal: Reports as per HPI and Denies back pain Integumentary/Breasts: Skin/Breast: Reports as per HPI, Denies pruritus, Denies erythema and Denies rash Neurologic: Reports as per HPI, Denies numbness and Denies weakness Psychiatric: Psychiatric: Reports no additional psychiatric complaints Endocrine: Endocrine: Reports no additional endocrine complaints Hematologic/Lymphatic: Hematologic/Lymphatic: Reports no additional hematologic/lymphatic complaints Allergic/Immunologic: Allergic/Immunologic: Reports no additional allergic/immunologic complaints [facility] Past Medical History Medical History (Updated 07/20/25 @ 17:00 by Anna Marie Lizama, GASKET INSPECTOR-C) Dysuria IUP (intrauterine ), incidental ADHD Anxiety Insomnia Positive home test BMI < 18.5 Iron deficiency anemia Gastritis Encounter to establish care Left hip pain Anemia GERD (gastroesophageal reflux disease) IBS (irritable bowel syndrome) Family History Family History Other Alcohol abuse Mother Cancer Grandparent Depression Social History Social History Smoking status: Never smoker Second hand tobacco smoke exposure: No Alcohol intake: current Alcohol use details: Rarely maybe one time a year Substance use: never Substance use type: does not use Do You Feel Safe in your Home?: Yes Lack of Transportation: No Lack of Food: Never True Current Housing: I Have Housing Concerned About Future Housing: No Difficulty Paying Gas/Electric Bills: No Difficulty Paying for Meds: No Currently Unemployed: No Education: Master's Degree or Higher Difficulty w/ Childcare or Family Care: No Living arrangements: with family Occupation/Education: occupation Gender identity (if verbalized by the patient): Female Sexual Orientation (if Verbalized by the Patient): Straight or Heterosexual Spiritual care concerns: No Agree to blood products: Yes Exam Const: General: healthy appearing and no acute distress Nutritional Appearance: well nourished Orientation/consciousness: patient oriented x3 Limitations: no limitations Resp: Effort & Inspection: normal respiratory effort Auscultation: clear to auscultation bilaterally Cardio: Rate: regular rate Rhythm: regular rhythm GI: Inspection: non-distended GI Palp: Yes Soft to palpation, No Tenderness to palpation present (GI), No Guarding due to palpation present (GI), No Rigid due to palpation and No Rebound tenderness present Auscultation: normal bowel sounds : General: Yes bladder normal to palpation and Yes no CVA tenderness Other: declines vaginal exam. Back/Spine/Pelvis: Back: no CVA tenderness Skin: General skin exam: normal color Rashes: no rashes Wounds: no wounds Neuro: General: patient oriented x3 and moves all extremities Speech: normal speech Gait exam (Neuro): Normal gait present Psych: Appearance: grossly normal Mental Status: mental status grossly normal Affect: normal affect Attitude: cooperative Course Course Level of Care: Express Care Visit Vital Signs Vital signs: Vital Signs Temperature 96.9 F L 07/20/25 16:43 Pulse Rate 85 07/20/25 16:43 Respiratory Rate 18 07/20/25 16:43 Blood Pressure 109/61 07/20/25 16:43 Pulse Oximetry 99 07/20/25 16:43 Oxygen Delivery Room Air 07/20/25 16:43 Temperature 96.9 F L 07/20/25 16:43 Pulse Rate 85 07/20/25 16:43 Respiratory Rate 18 07/20/25 16:43 Blood Pressure 109/61 07/20/25 16:43 Pulse Oximetry 99 07/20/25 16:43 Oxygen Delivery Room Air 07/20/25 16:43 MDM - Female Genitourinary MDM Narrative Medical decision making narrative: discussion with patient about symptoms more than likely with vaginal odor and accompanying symptoms this is bacterial vaginosis due to recent antibiotic use. Educated patient on symptoms will follow up with hard hat diver if symptoms not improved. The patient was evaluated by myself in the [facility] care. History is obtained from patient who is an independent historian and physical exam was performed. Available medical records were reviewed at this time. Exam findings show no acute concerns or changes; patient is non-toxic appearing and is in no distress. Patient is appropriate for outpatient treatment and follow-up. I have evaluated and discussed social determinants of health with the patient that could potentially impact subsequent diagnosis and treatment plans. Differential diagnosis and treatment plan were discussed with the patient. Patient agrees with discussion and after shared medical decision making agrees with plan of care. All questions were answered to the patient's satisfaction. Differential Diagnosis Differential diagnosis: Likely urinary tract infection, bacterial vaginosis, vaginitis and cystitis Medical Records Attestation: I reviewed the patient's medical records. Discharge Plan Discharge Clinical Impression: Bacterial vaginosis Patient Disposition: Home Condition: Stable Instructions: Antibiotic Form, Bacterial Vaginosis (ED) Patient Language: Nepali Prescriptions: New metronidazole [Metrogel] 1 % gel 1 applic topical HS 5 Days Qty: 60 0RF No Action ferrous sulfate 325 mg (65 mg iron) tablet 325 mg PO DAILY DHA 200 mg capsule 200 mg PO DAILY pantoprazole 40 mg tablet,delayed release (DR/EC) 40 mg PO QAM Qty: 90 3RF Follow-up/Referrals: Cristina Mcneil NP [Primary Care Provider, Family Practice] Time of Disposition: 17:00
== END 2025-07-20 17:27 | disposition home or self-care (01) ==
PROVIDERS: Emergency Provider Nurse Practitioner Family; PCP Nurse Practitioner Family
DX: N76.0 Acute vaginitis (principal); D50.9 Iron deficiency anemia, unspecified; K21.9 Gastro-esophageal reflux disease without esophagitis
CPT/HCPCS: 99213; G0463

== ENCOUNTER 2025-07-23 02:42 | Day surgery (SDC) | payer BC, SELFPAY ==
--- NOTE | 2025-07-14 17:17 | PC.NURSE ---
[facility] has started construction of its new state of the art ER which will open Spring 2026. With this, we anticipate parking may be a challenge for some our surgical patients and families. Parking spaces are limited but are available for all Surgical, obstetrics, and ER patients sharing this lot. If you arrive and find you are having a hard time finding a parking space, please note that we understand the challenges, please drive around the hospital and park near Hospital Entrance 1. When you enter this entrance, you can ask a volunteer to direct or take you back to the surgical waiting area to check in. We appreciate everyone?s understanding of these expected challenges while we build for your future. Report to the Outpatient Waiting Room, entrance under the green pavilion located off [address], at time 1130 on date 07/23/25. Planned Procedure Time: 1330.? Time changes happen often and if your time is changed the preop area will call you the afternoon before. - You and your visitor will be asked to self-screen and do not enter if you have any COVID symptoms. Please call surgeon if you need to reschedule. - A mask is optional within the hospital at this time. Patients may have clear liquids (water, carbonated beverages, clear teas, apple juice) until 3 hours prior to surgery with a maximum of 20 ounces. 1030 - No food from midnight until time of surgery and no smoking, or chewing tobacco (or any form of nicotine). No chewing gum, candy or mints. - Infants may have breast milk until 4 hours before surgery, infant formula 6 hours prior to surgery. - Children will be allowed to drink immediately following surgery.? If applicable, please bring a bottle or sippy cup to assist with drinking. Juice, water, soda, and popsicles are readily available.? For infants on formula, please bring formula the day of surgery.? Pacifiers are allowed. Take only the following medications with a SIP of water on the morning of surgery: NONE DO NOT STOP ANY OF YOUR OTHER PRESCRIPTION MEDICATIONS PRIOR TO SURGERY EXCEPT THE FOLLOWING Hold all vitamins and supplements for 3 days per anesthesiologist. Medications to discontinue per physician IRON SUPPLEMENT & VITAMIN Date to take last dose 07/20/25 Please no make-up, nail senegalese, hairspray, perfume, deodorant, or body powder the day of surgery.? No jewelry (including any body piercings) or valuables the day of surgery, leave them at home.? Please take a shower or bath the night before, or the morning of, surgery with an antibacterial soap.? Wear comfortable, loose fitting clothing.? Children are encouraged to wear pajamas. - Jewelry must be removed prior to entering the operating room.? Rings and piercings that are not removed may be cut off. - The hospital will not accept responsibility for valuables.? - Please leave all valuables, including medications, at home the day of surgery. If you are going home after surgery, a licensed ups driver must drive you home.? - NO public transportation without another adult if you receive anesthesia. - We recommend that an adult stay with you for 24 hours following discharge. - We also recommend that you do not drive, make important decision, drink alcoholic beverages, or take any drugs that were not prescribed by your health care provider for at least 24 hours after your discharge time. For Pediatric surgeries, we recommend two adults accompany the child home. Follow any additional instructions given to you from your surgeon. Telephone instructions given to Patient- Merlyn Palacios and asked if any additional questions and then verbalized understanding. Patient advised to call surgeon office or pre surgery nurse liaison [phone] if any additional questions.
[2025-07-14 17:26] VITALS: BMI 19.3
[2025-07-23] VITALS (7 sets, daily range): BP systolic 91–104; BP diastolic 7–71; PULSE 53–94; RESP 11–16; TEMP 36.5–36.9; O2SAT 100; BMI 19.4
--- OUTSIDE RECORDS SUMMARY | 2025-07-23 02:45 | XMS_ITS | Data Portability ---
Author Organization [facility] Address [address] [place] [address] Care Team Providers Care Solicitor Patent Name Role Phone JYOTI MCKINNON Primary Care Provider [phone] Assessment Encounter Date Assessment Date Assessment LastModified [...] salpingec kashif, laparosco pic (SURG) 2024 025 [id number] [facility], [address], [place], [address], 06/11/2025 11:25:52 Imaging US, obstetric , follow-up 2024 025 [email or web address] [facility], [address], [address], [place], [address], 05/13/2025 13:52:50 Medication Orders sertralin e 50 mg tablet 2024 025 GERALDINE [facility], [address] [facility], [place], [address], 06/09/2025 11:40:19 Patient TargetsNo targets recorded. Patient [...] t Abnor mal: No Resul ting Lab: [facility] [address] [facility] [address] Tel: CULTU RE ----- ----- ----- --- No Group B strep isola vlad at 2 days (mariely ctive broth enhan cemen t) Not Available [facility] (Lab) [address], [place], [address], 05/19/2025 15:19:04 04/17/2004/17/2025 US, obste tric, follo w-up No observ ation record ed. [facility] [address], [place], [address], 04/17/2025 16:49:00 04/17/2004/17/2025 US, obste tric, follo w-up No observ ation record ed. [email or web address] [facility] [address], [place], [address], 04/18/2025 12:24:34 05/13/20 25 05/13/2025 US, obste tric, follo w-up No observ ation record ed. [email or web address] [facility] [address], [place], [address], 05/13/2025 13:48:32 05/13/20 25 05/13/2025 US, obste tric, follo w-up No observ ation record ed. [email or web address] [facility] [address], [place], [address], 05/17/2025 11:24:48 Result Notes None recorded. Problems Name Problem SNOMED Code Status Onset Date Resolution Date Notes Provider Name and Address Organization Details Recorded Time Acid reflux 297849305 Completed protonix Petra Nakia [facility] 5 11:18:19 Female steriliz ation Completed planning for interval tubal ligation 6 weeks PP Petra Yee [facility] 5 11:18:19 Pregnanc y 50584046 Completed 202406/09/2025 Yesi Mario [facility] 5 11:09:28 Bilobate placenta 1827925276 Completed 2024 [facility] 11:18:19 Problem Notes None recorded. Procedures Surgical History Date Name Laterality Status Provider Name and Address Organization Details Recorded Time 11/08/19 25 Date of Last Pap Smear completed Yesi Mario [facility] 12/13/2024 10:12:36 08/12/20 22 completed Yesi Mario [facility] 05/12/2023 13:04:36 08/02/20 22 Date of Last Colonoscopy completed Yesi Mario [facility] 05/12/2023 13:06:10 colonoscopy completed NEL Lang- [address], [place], [address], [facility] 05/12/2023 13:17:36 endoscopy completed Melony Valladares [facility] [address], [place], [address], [facility] 05/12/2023 13:17:54 Imaging Results None recorded. [...] completed Not Available Not Available Not Available metronidazo le 0.75 % (37.5 mg/5 gram) vaginal gel INSERT 1 APPLICATO RFUL VAGINALLY AT BEDTIME FOR 5 DAYS active Not Available Not Available No t Available ciprofloxac in 500 mg tablet 05/12 [...] completed Not Available Not Available Not Available metronidazo le 1 % topical gel APPLY TOPICALLY TO THE AFFECTED AREA AT BEDTIME FOR 5 DAYS active Not Available Not Available No t Available iron active Not Available Not Availa ble Not Available active Not Available Not Avai lable Not Available Vitals Date Recorded Body weight Body mass index (BMI) Body height Systolic And Diastolic Provider Name and Address Organization Details Last Updated DateTime 05/16/2025 93702.747 06 g 21.6 kg/m2 170.18 cm 104/73 mm[Hg] Lynne Webster [facility] 05/16/2025 12:36:03 Date Recorded Body height Body mass index (BMI) Body weight Systolic And Diastolic Provider Name and Address Organization Details Last Updated DateTime 05/22/2025 170.18 cm 22.6 kg/m2 31942.3 g 112/77 mm[Hg] Yesi [facility] 05/22/2025 15:06:31 Date Recorded Body height Body mass index (BMI) Body weight Systolic And Diastolic Provider Name and Address Organization Details Last Updated DateTime 06/09/2025 170.18 cm 19.3 kg/m2 04883.86 g 103/73 mm[Hg] [facility] 06/09/2025 11:07:33 Date Recorded Body height Body mass index (BMI) Body weight Systolic And Diastolic Provider Name and Address Organization Details Last Updated DateTime 07/03/2025 170.18 cm 19.6 kg/m2 16882.05 g 100/67 mm[Hg] [facility] 07/03/2025 12:32:05 Social History Question Answer Notes LastModified by Organizat ion Details LastModified Time Tobacco Smoking Status Never Smoker Sugey barnhart [facility] 10/20/2023 10:49:15 Do You Have An [...] Or The Highest Degree You Have Received? [id number] Information not available 04/27/2022 Are There Any [...] Have Difficulty Walking Or Climbing Stairs? No [email or web address] Information not available 10/20/2023 Sex: Unknown Functional [...] able to care for yourself independently? 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 No [email or web address] Information not available 10/20/2023 What is your exercise level? None Information not available 04/27/2022 Mental Status Question Answer Note LastModified by Organization D etails LastModified Time Do you feel stressed (tense, restless, nervous, or anxious, or unable to sleep at night)? [id number] Information not available 04/27/2022 Family History Nothing Reported. Medical History Condition Response Allergies (Food, seasonal, environmental ) N Other N Drug/Latex Allergies/Reactions N Blood Transfusion N Breast Cancer N Dermatologic Disorders N Lung Disease N Defects or Inherited Disease N Breast Problem N Gestational Diabetes N Hematologic disorders N Anesthesia Complications N History of STI N Deep Vein Thrombosis N Polycystic ovary syndrome N Anxiety Disorder Y Autoimmune disease N Arthritis N Polyps N Infertility N Acid Reflux (GERD) Y History of abnormal pap N Cancer N Varicosities N Stroke N Neurologic/Epilepsy N Endometriosis N High Cholesterol N Fibromyalgia N Headaches N Kidney Disease N Heart Problems N Thyroid Problems N Kidney or Bladder Problems N GI Problems Y Eating Disorder [...] ICD10 Code Diagnosis IMO Codes Diagnosis Note [id number] NEL Donovan [facility] [address] [address] 04/27/2022 15:35:30 04/27/2022 16:49:33 Gynecologic examination 85987835 Z01.419 Take Calcium with Vitamin D 1200mg [...] this method.She denies hx of DVT/PE, HTN, stroke/DC, cancer, liver disease, or migraine with auraShe is non-smoker States her mother had a DVT on the nuvaring, was not diagnosed with any genetic condition or clotting conditionR /B of OCP discussed and accepted by patientNo hx of abnormal papsPap done todaySTI testing declinedge netic testing, discussedR TC in 1 year or sooner if needed Contracept ion care management 430544483 Z30.9 [id number] Melony Valladares [facility] [address] [address] 05/12/2023 12:49:14 05/12/2023 13:34:27 Gynecologic examination 70757425 Z01.419 Take Calcium with Vitamin D 1200mg [...] kylee test after late by 1wk LMP. [id number] Melony Valladares [facility] [address],[place] [address] 10/20/2023 10:47:46 10/20/2023 11:25:25 Abnormal uterine bleeding 3947461580 9100 N93.9 The patient and I discussed [...] face to face. Reproducti ve care management 735828125 Z31.9 Trying to achieve pregnancyH as almost been a year and not reached her goalConsid ering fertility testing for both partnersWi ll start work up todayMeet to discuss results and next steps in POC [id number] Zurdo Pichardo MD [facility] [address],[place] [address] 10/27/2023 09:51:35 10/27/2023 10:25:34 Irregular periods 30913387 N92.6 [id number] Melony Valladares , [facility] [address],[place] [address] 11/03/2023 09:28:43 11/03/2023 10:29:07 Paraovarian cyst 899132999 Q50.5 Today we discussed her USLikely this [...] plan of care. Reproducti ve care management 436216891 Z31.9 Trying to achieve pregnancyH as almost been a year and not reached her goalReview ed her lab work today which appears wnlOffered referral to [facility] which she will consider.Merrick arceo PCP is going to order sperm count testing for spouse.Artur singer reach out if wants recent labs sent to a fertility clinic. [id number] Zurdo Pichardo MD [facility] [address],[place] [address] 11/08/2024 13:46:25 11/08/2024 14:27:45 [id number] Zurdo Pichardo MD [facility] [address],[place] [address] 11/08/2024 13:47:02 11/08/2024 15:09:38 Amenorrhea 48391322 N91.2 this patient is a 29-year-ol d [...] begin routine care at her next visit. [id number] Zurdo Pichardo MD [facility] [address],[place] [address] 12/06/2024 12:34:20 12/06/2024 14:21:34 screening 180931516 Z36.82 Z3A.12 [id number] Zurdo Pichardo MD [facility] [address],[place] [address] 12/13/2024 10:01:44 12/16/2024 05:59:05 Routine care 177098513 Z34.91 [id number] Zurdo Pichardo MD [facility] [address],[place] [address] 12/24/2024 09:38:04 12/24/2024 10:27:59 Routine care 320536238 Z34.91 [id number] MD Luis Laird [address],[place] [address] 12/25/2024 14:48:52 12/25/2024 15:57:21 Spotting per vagina in 770704994 O26.852 Z3A.15 [id number] MD Luis Laird [address],[place] [address] 01/24/2025 09:58:44 01/24/2025 11:43:20 screening for malformation 898812362 Z36.3 Z3A.19 8915181852 [id number] MD Luis Laird [address],[place] [address] 01/24/2025 09:59:27 01/24/2025 11:52:54 Second trimester 82383541 Z34.02 23871176 [id number] MD Luis Laird [address] [address] 02/21/2025 16:02:40 02/24/2025 07:34:23 Second trimester 43192478 Z34.02 90752355 [id number] MD Luis Laird [address],[place] [address] 02/25/2025 15:29:16 02/25/2025 16:16:15 Anomaly of placenta 53139990 O43.102 Z3A.24 6865100 [id number] MD Luis Laird [address],[place] [address] 03/20/2025 17:15:02 03/21/2025 05:19:29 Third trimester 75860764 Z34.03 27231869 [id number] MD Luis Laird [address],[place] [address] 03/21/2025 16:24:57 03/21/2025 16:56:06 Bilobate placenta 2338507316 O43.199 Z3A.27 7588 [id number] MD Luis GALARZA [address],[place] [address] 04/02/2025 14:23:52 04/02/2025 15:09:59 Female sterilization 44774897 Z30.2 Gestation period, 29 weeks 21033709 Z3A.29 8271097 [id number] MD Luis Laird [address],[place] [address] 04/17/2025 10:00:55 04/17/2025 10:41:52 Placental condition affecting management of mother 897281668 O43.93 Z3A.31 22412639 [id number] MD Luis Laird [address],[place] [address] 04/18/2025 11:45:40 04/18/2025 12:39:22 Third trimester 73764946 Z34.03 08858976 [id number] MD Luis Laird [address],[place] [address] 05/02/2025 14:09:12 05/02/2025 15:05:56 Third trimester 48699336 Z34.03 47446070 [id number] MD Luis GALARZA [address],[place] [address] 05/13/2025 09:31:34 05/13/2025 10:10:47 Bilobate placenta 3059843030 O43.193 Z3A.35 2694946 [id number] MD Luis GALARZA [address],[place] [address] 05/16/2025 12:28:08 05/16/2025 13:20:34 Third trimester 29559372 Z34.03 27903084 [id number] MD Luis Laird [address],[place] [address] 05/22/2025 14:47:14 05/22/2025 15:29:11 Third trimester 19765827 Z34.03 67035666 [id number] Zurdo Pichardo MD [facility] [address] [address] 06/09/2025 10:29:42 06/09/2025 11:46:19 Unwanted fertility 745840964 Z30.09 [id number] Anxiety 28088237 F41.9 [id number] 29-year-ol d female experienci ng marked anxiety. [...] was given instructio ns and precaution s. [id number] Zurdo Pichardo MD [facility] [address] [address] 07/03/2025 11:40:26 07/03/2025 12:41:38 state 07814094 Z39.2 [id number] This patient is a 34-year-ol d female [...] Cid Member ID Guarantor Name 07/20/2025 1 [place] [id number] Samm Philip [id number] Merlyn Palacios 05/02/2025 1 [employer] (POS II) [id number] Merlyn Palacios [id number] Merlyn Palacios Notes Date Note Type Note Provider Name and Address Organization Details Recorded Time 05/16/2025 text/html Generic HPI TemplateReported by Patient PRIMO SHEEHAN MD [address], [place], [address], [facility] 05/16/2025 13:09:23 05/22/2025 text/html Generic HPI TemplateReported by Patient Zurdo Pichardo MD [address], [place], [address], [facility] 05/22/2025 15:24:10 06/09/2025 text/html 29-year-old female [...] precautions. Zurdo Pichardo MD [address], [place], [address], [facility] 06/09/2025 11:44:30 07/03/2025 text/html VisitReported by Patient This patient is a 34-year-old female who presents for care. Her baby is bottle/breast feeding. Her baby is doing very well. Her mood is good. She has not had intercourse. Her bleeding is resolved. contraception - Salpingectomy. To return for well-woman exam in 2-3 months. Zurdo Pichardo MD [address], [place], [address], [facility] 07/03/2025 12:40:24 OBGyn Episode Ob Episode Information Episode Created Date Number of Fetuses Patient Bloodtype Patient rh Status Prepregnancy Weight lbs Domestic Partner Domestic Partner Phone Father Name Emt/Dispatcher Status 12/14/19 25 1 O Positive 109 Samm CLOSED Fetus Data First Name Last Name Admitted to NICU Weight (g) Sex Living Outcome Pediatric Complications Fetus ID Race Codes Race Delivery Type Becket t false 3146.79 45 M true Full Term [id number] Vaginal Delivery Problems Problem Notes Problem Name Start Date End Date Resolution Snomed Code Not e Female sterilization 98232681 planning for interval tubal ligation 6 weeks PP Acid reflux 889452095 protonix Bilobate placenta 01/24/2025 6558757089 serial growth US Ke Calculation Initial Ke [...] Weight in lbs Pre/Post Dialysis Refused Weight 110.128916816107 BP Diastolic BP Location Tested BP Systolic [...] Type Weight in lbs Pre/Post Dialysis Refused 110.747072856632 BP Diastolic BP Location Tested BP Systolic [...] Weight in lbs Pre/Post Dialysis Refused Weight 116.404687044701 BP Diastolic BP Location Tested BP Systolic [...] Type Weight in lbs Pre/Post Dialysis Refused 124.525716713829 BP Diastolic BP Location Tested BP Systolic [...] Weight in lbs Pre/Post Dialysis Refused Weight 129.09006385420 BP Diastolic BP Location Tested BP Systolic [...] Weight in lbs Pre/Post Dialysis Refused Weight 131.813748831340 Weight 131.009271201956 BP Diastolic BP Location Tested BP Systolic [...] Type Weight in lbs Pre/Post Dialysis Refused 134.218472364504 BP Diastolic BP Location Tested BP Systolic [...] Type Weight in lbs Pre/Post Dialysis Refused 137.801236118805 BP Diastolic BP Location Tested BP Systolic [...] Type Weight in lbs Pre/Post Dialysis Refused 138.256347317081 BP Diastolic BP Location Tested BP Systolic [...] Weight in lbs Pre/Post Dialysis Refused Weight 144.21302499552 BP Diastolic BP Location Tested BP Systolic [...] Weight in lbs Pre/Post Dialysis Refused Weight 123.400714147052 BP Diastolic BP Location Tested BP Systolic [...]
--- OUTSIDE RECORDS SUMMARY | 2025-07-23 02:45 | XMS_ITS | Clinical Summary ---
Author Organization [facility] Address [facility] [place] [address] Care Team Providers Care Biological Technician Name Role Phone Petrona West DAY SPA MANAGER Primary Care Provider + Allergies No known [...] Sex Assigned at Female 11/18/2019 5:41 AM LEATHER DRESSER Legal Sex Female 10:23 AM CDT Gender Identity Female 11/18/2019 5:41 AM LEATHER DRESSER Sexual Orientation Straight 11/18/2019 5: 41 AM LEATHER DRESSER Last Filed Vital Signs Vital Sign Reading Time Taken Comments Blood Pressure 96/57 08/12/2022 8:43 AM LEATHER DRESSER Pulse 85 08/12/2022 8:43 AM LEATHER DRESSER Temperature 36 C (96.8 F) 08/12/2022 8:43 AM LEATHER DRESSER Respiratory Rate 18 08/12/2022 8:43 AM LEATHER DRESSER Oxygen Saturation 100% 08/12/2022 8:43 AM LEATHER DRESSER Inhaled Oxygen Concentration - - Weight 54.4 [...] 2:37 AM 05/07/2022 8:40 PM Care Teams Biological Technician Relationship Specialty Start Date End Date Petrona West FNP [address] [place] [id number] PCP - General NURSE PRACTITIONER 05/15/19
[2025-07-23] MEDS: ACETAMINOPHEN 500 MG TABLET 1000 MG PO (11:20)
[2025-07-23] MEDS: SCOPOLAMINE 1 MG PATCH 1 PATCH TRANSDERM (11:21)
[2025-07-23] MEDS: KETOROLAC 15 MG/ML VIAL (*BKC) IV PUSH (11:21)
[2025-07-23] MEDS: LACTATED RINGERS 1,000 ML 30 ML IV CONT ×2 (11:22→14:02)
--- NOTE | 2025-07-23 11:30 | P.HP_ITS ---
H&P: HPI History of Present Illness Date/Time: 07/23/25 11:30 Chief Complaint: Unwanted fertility Narrative: This patient is a 29-year-old female with unwanted fertility. We have agreed to perform laparoscopic bilateral salpingectomy. She understands risks, benefits, and alternatives. She has completed informed consent process is ready to proceed. The patient understands the details of the procedure. The procedure has been explained in detail. She understands the risks. She understands that injuries may occur that result in hospitalization, more surgery, and severe illness. She understands risk of hemorrhage and infection. She denies any chest pain or shortness of breath. She denies any nausea, vomiting, fever, chills. Review of Systems Review of Systems: All systems reviewed & are unremarkable except as noted in HPI and below Constitutional: Constitutional: Denies chills, Denies fatigue, Denies fever(s) and Denies weakness Eyes: Eyes: Denies blurry vision, Denies change in vision, Denies loss of per ipheral vision, Denies loss of vision, Denies other visual disturbances and Denies eye pain ENT: Denies vertigo, Denies dizziness, Denies hearing loss, Denies mouth pain, Denies nasal obstruction, Denies neck mass and Denies neck pain Cardiovascular: Cardiovascular: Denies chest pain, Denies diaphoresis, Denies syncope, Denies leg edema and Denies dyspnea Respiratory: Respiratory: Denies chest congestion, Denies cough, Denies hemoptysis, Denies dyspnea and Denies wheezing Gastrointestinal: Gastrointestinal: Denies abdominal pain, Denies constipation, Denies diarrhea, Denies nausea and Denies vomiting Genitourinary: Genitourinary: Denies hematuria, Denies change in libido, Denies nocturia, Denies genital lesions, Denies flank pain and Denies urinary urgency Musculoskeletal: Musculoskeletal: Denies abnormal gait, Denies back pain, Denies myalgias, Denies arthralgias, Denies joint swelling, Denies muscle weakness and Denies neck pain Integumentary/Breasts: Skin/Breast: Denies swelling, Denies breast pain, Denies breast mass, Denies dry skin, Denies nipple discharge, Denies unusual bruising and Denies jaundice Neurologic: Denies Neuro-related abnormal movements, Denies Abnormal speech present, Denies abnormal gait, Denies behavioral changes, Denies confusion, Denies vertigo, Denies dizziness, Denies syncope, Denies loss of vision, Denies memory loss, Denies convulsions and Denies weakness Psychiatric: Psychiatric: Denies abnormal sleep pattern, Denies behavioral changes, Denies change in libido, Denies confusion, Denies depression, Denies a nhedonia and Denies memory loss Endocrine: Endocrine: Reports no additional endocrine complaints, Denies change in libido and Denies fatigue Hematologic/Lymphatic: Hematologic/Lymphatic: Reports no additional hematologic/lymphatic complaints Allergic/Immunologic: Allergic/Immunologic: Reports no additional allergic/immunologic complaints and Denies wheezing PMFSH Past Medical History Medical History (Updated 07/23/25 @ 11:32 by Zurdo Pcihardo MD) Dysuria IUP (intrauterine ), incidental ADHD Anxiety Insomnia Positive home test BMI < 18.5 Iron deficiency anemia Gastritis Encounter to establish care Left hip pain Anemia GERD (gastroesophageal reflux disease) IBS (irritable bowel syndrome) Family History Family History Other Alcohol abuse Mother Cancer Grandparent Depression Social History Social History Smoking status: Never smoker Second hand tobacco smoke exposure: No Alcohol intake: current Alcohol use details: Rarely maybe one time a year Substance use: never Substance use type: does not use Do You Feel Safe in your Home?: Yes Lack of Transportation: No Lack of Food: Never True Current Housing: I Have Housing Concerned About Future Housing: No Difficulty Paying Gas/Electric Bills: No Difficulty Paying for Meds: No Currently Unemployed: No Education: Master's Degree or Higher Difficulty w/ Childcare or Family Care: No Living arrangements: with family Occupation/Education: occupation Gender identity (if verbalized by the patient): Female Sexual Orientation (if Verbalized by the Patient): Straight or Heterosexual Spiritual care concerns: No Agree to blood products: Yes Meds Home Medications and Allergies Home Medications ?Medication ?Instructions ?Recorded ?Confirmed ?Type docosahexaenoic acid 200 mg 200 mg PO DAILY 10/11/24 1 History capsule ( DHA) ferrous sulfate 325 mg (65 mg 325 mg PO DAILY 10/11/24 07/20/25 History iron) tablet pantoprazole 40 mg tablet,delayed 40 mg PO QAM #90 tab s 02/12/25 07/20/25 Rx release metronidazole 1.3 % (65 mg/5 gram) 1 appful vaginal HS 5 days #25 07/20/25 Rx vaginal gel grams Allergies Allergy/AdvReac Type Severity Reaction Status Date / Time No Known Allergies Allergy Verified 07/14/25 17:09 Exam Const: General: cooperative, healthy appearing, comfortable and no acute distress Orientation/consciousness: oriented to person, oriented to place and oriented to time HENMT: Head: normal to inspection Ears: external ears normal Face/Nose/Sinus: Normal external nose present and normal facial exam Face and sinus: normal facial exam Eyes: General: appearance normal, both eyes and all related structures Neck: Neck: normal visual inspection, trachea midline and supple Resp: Auscultation: clear to auscultation bilaterally, no crackles, no rales, no rhonchi and no wheezes Cardio: Rate: regular rate Rhythm: regular rhythm Heart sounds: no click, no murmurs and no rubs GI: GI Palp: No abdominal tenderness, No Soft to palpation, No Tenderness to palpation present (GI) and No Palpable mass present Auscultation: normal bowel sounds Skin: General skin exam: normal color and no rashes or lesions noted Neuro: General: oriented to person, oriented to place and oriented to time Extrem: General: normal to inspection, no joint enlargement, no clubbing, cyanosis or edema, no pedal edema and no calf tenderness Psych: Appearance: grossly normal Mental Status: mental status grossly normal Speech and movement: Normal speech and movement present Assessment and Plan Assessment and plan (1) Unwanted fertility: Code(s): Z30.09 - Encounter for other general counseling and advice on contraception Status: Acute Plan This patient is a 29-year-old female with unwanted fertility. We have agreed to perform laparoscopic bilateral salpingectomy. She understands risks, benefits, and alternatives. She has completed informed consent process is ready to proceed.
--- NOTE | 2025-07-23 11:32 | WPDHPUPDATE1 ---
History and Physical Update Update Date/Time: 07/23/25 11:32 History and Physical has been reviewed, including an updated exam of the patient. There are NO changes in the patient's condition. Risks, benefits, and alternatives have been discussed and questions answered. Patient agrees to proceed with procedure.
--- NOTE | 2025-07-23 12:00 | WPDANESEPPF ---
Anes - Initial Pre Proc Eval Procedure: Operation Date: 07/23/25 13:30 Proposed Procedures p Laparoscopic Bilateral Salpingectomy - Zurdo Pichardo MD Date/Time: 07/23/25 12:00 Surgeon: Zurdo Pichardo MD Pre Op Diagnosis: sterilization Patient Data Age: 29 Gender: F Height: 1.7 m Weight: 55.9 kg Allergies Allergy/AdvReac Type Severity Reaction Status Date / Time No Known Allergies Allergy Verified 07/23/25 11:42 Home Medications ?Medication ?Instructions ?Recorded ?Confirmed ?Type docosahexaenoic acid 200 mg 200 mg PO DAILY 10/11/24 07/23/25 History capsule ( DHA) ferrous sulfate 325 mg (65 mg 325 mg PO DAILY 10/11/24 07/23/25 History iron) tablet pantoprazole 40 mg tablet,delayed 40 mg PO QAM #90 tabs 02/12/25 07/23/25 Rx release metronidazole 1.3 % (65 mg/5 gram) 1 appful vaginal HS 5 days #25 07/20/25 07/23/25 Rx vaginal gel grams Laboratory Tests 07/23/25 11:27 Beta HCG, Quant Pending Patient hx anesthesia problems: none Family hx anesthesia problems: none Results Review: All pre-operative results and documents have been reviewed as part of the pre-operative evaluation. [facility]LY [facility] Past Medical History Medical History Dysuria IUP (intrauterine ), incidental ADHD Anxiety Insomnia Positive home test BMI < 18.5 Iron deficiency anemia Gastritis Encounter to establish care Left hip pain Anemia GERD (gastroesophageal reflux disease) IBS (irritable bowel syndrome) Family History Family History Other Alcohol abuse Mother Cancer Grandparent Depression Social History Social History Smoking status: Never smoker Second hand tobacco smoke exposure: No Alcohol intake: current Alcohol use details: Rarely maybe one time a year Substance use: never Substance use type: does not use Do You Feel Safe in your Home?: Yes Lack of Transportation: No Lack of Food: Never True Current Housing: I Have Housing Concerned About Future Housing: No Difficulty Paying Gas/Electric Bills: No Difficulty Paying for Meds: No Currently Unemployed: No Education: Master's Degree or Higher Difficulty w/ Childcare or Family Care: No Living arrangements: with family Occupation/Education: occupation Gender identity (if verbalized by the patient): Female Sexual Orientation (if Verbalized by the Patient): Straight or Heterosexual Spiritual care concerns: No Agree to blood products: Yes Anes - Eval Final PreProcedure Day of Procedure 07/23/25 12:00 Patient weight: normal and thin Lungs: normal air movement Airway: Mallampati scale class II Neurological: alert and oriented Last oral intake: >/= 8 hours ASA classification: I Emergent: no Anesthetic plan: proceed Anesthesia type and monitoring: general ETT and standard monitoring Results Review: All pre-operative results and documents have been reviewed as part of the pre-operative evaluation. GERD, mild anxiety by hx, active, no cp or sob. Informed Consent: The patient's anesthetic plan and its attendant risks and benefits were discussed with the patient/family/POA. Questions were solicited and answers provided to the satisfaction of the patient/family/POA.
[2025-07-23 12:11] LABS: BEDSIDEPREGUCG Positive (Negative)
[2025-07-23 12:20] LABS: Beta HCG Quantitative < 2.39 mIU/ML
--- NOTE | 2025-07-23 12:55 | S_PTH ---
PATIENT: Merlyn Palacios LOC: [facility] U#:[id number] AGE/SX: 29/F ROOM: RE07/23/[address]: Zurdo Pichardo MD : 1995 BED: DIS: 07/23/2025 SPEC #: [id number] RECD: 07/23/25 13:11 STATUS: MONTRELL REMarvin #: [id number] EVERARDO: 07/23/25 12:[address]: Zurdo Pichardo DEPT: [facility] Surgical RECD BY: Nakul Velazquez ENTERED: 07/23/25 13:12 SP TYPE: Surgical OTHR DR: Cristina Mcneil APRN Tissues: A - Fallopian Tube Bilateral Procedures: Gross and Microscopic Level 2 Hematoxylin and Eosin Stain
--- NOTE | 2025-07-23 13:21 | W.PM.PROC2 ---
Procedure Note - Detailed Date of Procedure 07/23/25 Pre-op Diagnosis sterilization Post-op Diagnosis Same Procedure Performed Laparoscopic bilateral salpingectomy Surgeon Zurdo Pichardo MD Anesthesia General Indications Unwanted fertility Findings Normal pelvic anatomy Description of Procedure The patient was taken the operating room. She was prepped and draped in the dorsal lithotomy position after induction of general anesthesia. A 5 mm skin incision was made in the left upper quadrant of the abdominal skin. A 5 mm trocar was inserted the intra-abdominal cavity under direct visualization of the scope. Pneumoperitoneum was achieved. A 5 mm trocar was inserted in the left lower quadrant identical fashion. A 5 mm infraumbilical trocar was inserted in identical fashion as well. The bilateral fallopian tubes were removed. This was done by using a LigaSure cautery. The mesosalpinx adjacent to the tube was cauterized transected with LigaSure. This was initiated in the area the ovary and in a stepwise fashion moved medially to the area of the cornu of the uterus. Once there the fallopian tube was cauterized and transected. This was done in identical fashion on each side. The fallopian tubes were taken out through the left lower quadrant trocar site. The pneumoperitoneum was reduced. The trocars removed. The skin was closed with subcuticular 4 Monocryl and covered with Dermabond. She was taken to cover stable condition. Sponge lap and needle counts were correct x2. Estimated Blood Loss 5 Drains No Packing No Pathology Yes Complications No immediate complications Condition Stable Disposition PACU
[2025-07-23] MEDS: fentaNYL CITRATE INJ (*CRX) 100 MCG/2 ML VIAL 25 MCG IV PUSH ×4 (13:40→14:00)
== END 2025-07-23 14:55 | disposition home or self-care (01) ==
PROVIDERS: Anesthesiology; PCP Nurse Practitioner Family; Visit Provider Obstetrics & Gynecology
PROC: (CPT 49320; principal; 2025-07-23 13:30)
DX: Z30.2 Encounter for sterilization (principal); G89.18 Other acute postprocedural pain; D50.9 Iron deficiency anemia, unspecified; K21.9 Gastro-esophageal reflux disease without esophagitis; K58.9 Irritable bowel syndrome, unspecified; F90.9 Attention-deficit hyperactivity disorder, unspecified type; F41.9 Anxiety disorder, unspecified; G47.00 Insomnia, unspecified; Z87.19 Personal history of other diseases of the digestive system; Z80.9 Family history of malignant neoplasm, unspecified
CPT/HCPCS: 58661; 36415; 84702; 88302; A9270; J1100; J1200; J1885; J2003; J2250; J2405; J2704; J3010; J7030; J7120; Q9968

== ENCOUNTER 2025-09-16 21:19 | Emergency (ER) | payer BC, SELFPAY ==
--- NOTE | ~2025-09-16 | US_ITS ---
US venous doppler LE RT INDICATION: Right lower extremity pain and swelling. COMPARISON: None. TECHNIQUE: The deep veins of the right lower extremity were evaluated with Duplex Doppler, color Doppler, and high-resolution B-mode sonography. Evaluated veins include the common femoral, femoral, and popliteal veins. The calf veins were also evaluated. Compression and augmentation maneuvers were performed. FINDINGS: The deep veins of the right lower extremity were compressible and demonstrated spontaneous phasic waveforms with an appropriate response to augmentation maneuvers. The visualized calf veins were patent. IMPRESSION: There was no sonographic evidence of deep vein thrombosis in the right lower extremity. Reviewed, dictated and finalized at location S. [employer] IMPRESSION: There was no sonographic evidence of deep vein thrombosis in the right lower ex tremity.
[2025-09-16 21:24] VITALS: BP 124/94; PULSE 107; RESP 16; TEMP 36.6; O2SAT 100
[2025-09-16 21:36] VITALS: BP 109/71; PULSE 93; RESP 17; O2SAT 100
--- NOTE | 2025-09-16 21:40 | ED.EXTPRO ---
HPI - Extremity Problem General Chief complaint: Extremity Problem,Nontraumatic Stated complaint: think I have blood clot in right leg Time Seen by Provider: 09/16/25 21:32 History of Present Illness HPI Narrative: 30-year-old otherwise healthy female presenting to the emergency department with pain and swelling in her right calf. She states she was ambulatory at home and then has sudden-onset pain in her right calf feeling a pulled muscle but she has risk factors for DVT including family history of blood clots, personal use of estrogen cream for dryness and recent 3 months ago . Denies any traumatic injuries. No fever, chills, nausea, vomiting. Has not taken anything for the symptoms. She endorses pain in her posterior medial right calf focally but no overlying bruising or significant discoloration. noticed minor amounts of swelling. Related Data Home Medications ?Medication ?Instructions ?Recorded ?Confirmed ?Last Taken ?Type docosahexaenoic acid 200 mg 200 mg PO DAILY 10/11/24 07/23/25 07/19/25 History capsule ( DHA) ferrous sulfate 325 mg (65 mg 325 mg PO DAILY 10/11/24 07/23/25 07/19/25 History iron) tablet Allergies Allergy/AdvReac Type Severity Reaction Status Date / Time No Known Allergies Allergy Verified 09/16/25 21:28 Review of Systems Review of Systems: As reviewed above in HPI All systems reviewed & are unremarkable except as noted in HPI and below PMFSH Past Medical History Medical History Dysuria IUP (intrauterine ), incidental ADHD Anxiety Insomnia Positive home test BMI < 18.5 Iron deficiency anemia Gastritis Encounter to establish care Left hip pain Anemia GERD (gastroesophageal reflux disease) IBS (irritable bowel syndrome) Family History Family History Other Alcohol abuse Mother Cancer Grandparent Depression Social History Social History Smoking status: Never smoker Second hand tobacco smoke exposure: No Alcohol intake: current Alcohol use details: Rarely maybe one time a year Substance use: never Substance use type: does not use Lack of Transportation: No Lack of Food: Never True Current Housing: I Have Housing Concerned About Future Housing: No Difficulty Paying Gas/Electric Bills: No Difficulty Paying for Meds: No Currently Unemployed: No Education: Master's Degree or Higher Difficulty w/ Childcare or Family Care: No Living arrangements: with family Occupation/Education: occupation Gender identity (if verbalized by the patient): Female Sexual Orientation (if Verbalized by the Patient): Straight or Heterosexual Spiritual care concerns: No Agree to blood products: Yes Exam Narrative: GENERAL: [Well-appearing, well-nourished, and in no acute distress.] HEAD: [Normocephalic, atraumatic.] EYES: [PERRLA and EOMI.] ENT: Nares clear, no rhinorrhea or epistaxis. Mucous membranes moist. NECK: Supple. CHEST: [Clear to auscultation. No respiratory distress.] HEART: [Regular rate and rhythm]. No murmur heard. [Normal peripheral pulses.] ABDOMEN: [Soft, nondistended], [nontender], [No rigidity or guarding] EXTREMITIES: Normal range of motion, pain with passive and active plantar flexion the right foot elicited at the right medial calf. No palpable cords. No overlying skin discoloration. Minor asymmetric swelling barely perceptible. SKIN: Warm, dry, no rash. NEURO: [No focal deficits]. Alert and oriented [x3.] PSYCH: [Normal mood and affect.] Course Vital Signs Vital signs: Vital Signs Temperature 36.6 C 09/16/25 21:24 Pulse Rate 107 H 09/16/25 21:24 Respiratory Rate 16 09/16/25 21:24 Blood Pressure 124/94 H 09/16/25 21:24 Pulse Oximetry 100 09/16/25 21:24 Oxygen Delivery Room Air 09/16/25 21:24 Temperature 36.6 C 09/16/25 21:24 Pulse Rate 95 09/16/25 22:56 Respiratory Rate 15 09/16/25 22:56 Blood Pressure 102/66 09/16/25 22:56 Pulse Oximetry 100 09/16/25 22:56 Oxygen Delivery Room Air 09/16/25 21:24 MDM MDM Narrative Medical decision making narrative: 30-year-old otherwise healthy female presenting to the emergency department with pain and swelling in her right calf. She states she was ambulatory at home and then has sudden-onset pain in her right calf feeling a pulled muscle but she has risk factors for DVT including family history of blood clots, personal use of estrogen cream for dryness and recent 3 months ago . Denies any traumatic injuries. No fever, chills, nausea, vomiting. Has not taken anything for the symptoms. She endorses pain in her posterior medial right calf focally but no overlying bruising or significant discoloration. noticed minor amounts of swelling. Normal range of motion, pain with passive and active plantar flexion the right foot elicited at the right medial calf. No palpable cords. No overlying skin discoloration. Minor asymmetric swelling barely perceptible. patient is hemodynamically stable. No fever tachycardia. Examination consistent with potential muscle cramp versus hematoma versus less likely DVT but she does have multiple risk factors. Ultrasound obtained at this time for further delineation. Discussed options and treatment plan with the patient. Ultrasound shows no sonographic evidence of a deep venous thrombosis. Likely hematoma or muscle cramp. Instructed on anti-inflammatories and safe for discharge. Differential Diagnosis Differential Diagnosis: Examination consistent with potential muscle cramp versus hematoma versus less likely DVT but she does have multiple risk factors. Imaging Data Attestation: I personally reviewed and interpreted this imaging study as follows: My impression: Impressions Venous Doppler Study 09/16/25 22:02 IMPRESSION: There was no sonographic evidence of deep vein thrombosis in the right lower extremity. Radiologist's impression: ITS Impressions Venous Doppler Study 09/16/25 22:02 IMPRESSION: There was no sonographic evidence of deep vein thrombosis in the right lower extremity. Discharge Plan Discharge Clinical Impression: Pain of right calf Patient Disposition: Home Condition: Stable Instructions: Antibiotic Form Additional Instructions: Ultrasound shows no sonographic evidence of a deep venous thrombosis. Symptoms likely secondary to muscle cramp or small hematoma but no visualized swelling or bleeding on the ultrasound either. Take anti-inflammatory medications such as Tylenol and ibuprofen every 6-8 hours for pain and swelling control. Apply ice pack to the area up to 20 minutes at a time for continued symptom control. Return with any emergent concerns. Patient Language: [place] Prescriptions: No Action metronidazole 1.3 % (65 mg/5 gram) gel 1 appful vaginal HS 5 Days Qty: 25 0RF Patient Comments: on day 3 of 5 ferrous sulfate 325 mg (65 mg iron) tablet 325 mg PO DAILY DHA 200 mg capsule 200 mg PO DAILY hydrocodone-acetaminophen 5-325 mg tablet 1 - 2 tablet PO Q6H PRN (Reason: pain) Qty: 10 0RF pantoprazole 40 mg tablet,delayed release (DR/EC) 40 mg PO QAM Qty: 90 3RF Follow-up/Referrals: Cristina Mcneil APRN [Primary Care Provider, [facility]] Time of Disposition: 22:22
[2025-09-16 22:55] VITALS: BP 102/66; PULSE 95; RESP 15; O2SAT 100
[2025-09-16 22:56] VITALS: BP 102/66; PULSE 95; RESP 15; O2SAT 100
== END 2025-09-16 22:58 | disposition home or self-care (01) ==
PROVIDERS: Emergency Provider Student in an Organized Health Care Education/Training Program; PCP Nurse Practitioner Family
DX: M79.661 Pain in right lower leg (principal); D50.9 Iron deficiency anemia, unspecified; K21.9 Gastro-esophageal reflux disease without esophagitis; K58.9 Irritable bowel syndrome, unspecified
CPT/HCPCS: 93971; 99284